=== PATIENT | female | born 1945 | race Hispanic/Latino ===

== ENCOUNTER 2018-05-19 10:12 | Inpatient (IN) | payer MEDICARE, OTHER ==
[2018-05-19 11:15] LABS: HEMOGLOBIN 14.6 g/dL (11.0-16.0); LYMPH # 0.8 K/uL (1.0-4.3); NRBC % 0.1 % (0.0-2.0)
[2018-05-19 11:21] LABS: BASO % 0.6 % (0.0-2.0); EOS % 0.4 % (0.0-4.0); LYMPH % 17.4 % (20.0-40.0); MEAN CELL VOLUME 92.8 fL (81.0-99.0); MEAN CORPUSCULAR HEMOGLOBIN 32.4 pg (27.0-31.0); MEAN CORPUSCULAR HGB CONC 34.9 g/dL (33.0-37.0); MEAN PLATELET VOLUME 8.7 fL (7.2-11.7); MONO # 0.4 K/uL (0.0-0.8); MONO % 8.2 % (0.0-10.0); NEUT # 3.4 K/uL (1.8-7.0); NEUT % 73.4 % (50.0-75.0); RBC 4.5 Mil/uL (3.80-5.20); RED CELL DISTRIBUTION WIDTH 13.6 % (11.5-14.5); WHITE BLOOD COUNT 4.6 K/uL (4.8-10.8)
[2018-05-19 11:24] LABS: SQUAMOUS EPITHIAL 7 /hpf (0-5); URINE BACTERIA OCC (<OCC); URINE BILIRUBIN NEGATIVE (NEGATIVE); URINE BLOOD 1+ (NEGATIVE); URINE CLARITY Hazy (Clear); URINE COLOR Yellow (YELLOW); URINE GLUCOSE (UA) NORMAL (Normal); URINE LEUKOCYTE ESTERASE 3+ Leu/uL (Negative); URINE PROTEIN 1+ mg/dL (NEGATIVE); URINE UROBILINOGEN NORMAL mg/dL (0.2-1.0)
[2018-05-19 11:29] LABS: ALB/GLOB RATIO 1.6 (1.0-2.1); ALBUMIN 4.1 g/dL (3.5-5.0); ALT/SGPT 31 U/L (9-52); AST/SGOT 17 U/L (14-36); BLOOD UREA NITROGEN 11 mg/dL (7-17); CALCIUM 9.1 mg/dl (8.6-10.4); GFR NON-AFRICAN AMERICAN > 60
--- NOTE | 2018-05-19 11:41 | C.PDOC ---
History Of Present Illness 72yo female, presents to ED with complaints of an itchy vaginal rash, which became painful 2.5 days ago. Denies fever, nausea/vomiting, fever, chills, back pain, or any other associated symptoms. No other complaints at this time. Chief Complaint (Nursing): Abnormal Skin Integrity History Per: Patient History/Exam Limitations: no limitations Past Medical History Reviewed: Historical Data, Nursing Documentation, Vital Signs Vital Signs: Last Vital Signs Temp 102.7 F H 05/19/18 14:56 Pulse 97 H 05/19/18 14:45 Resp 18 05/19/18 14:45 BP 149/79 05/19/18 14:45 Pulse Ox 95 05/19/18 14:45 - Medical History PMH: Arthritis, HTN, Hypercholesterolemia Surgical History: Back Surgery Family History: States: No Known Family Hx - Social History Hx Alcohol Use: No Hx Substance Use: No - Immunization History Hx Tetanus Toxoid Vaccination: No Hx Influenza Vaccination: No Hx Pneumococcal Vaccination: No Review Of Systems Constitutional: Negative for: Fever, Chills Gastrointestinal: Negative for: Nausea, Vomiting Neurological: Negative for: Weakness, Numbness Physical Exam - Physical Exam Appears: Non-toxic, No Acute Distress Skin: Warm, Dry, Other (suprapubic area including vulva and buttocks with erythema, warmth and raised skin, +scaling and yellow plaques. ) Head: Atraumatic, Normacephalic Eye(s): bilateral: Normal Inspection Nose: Normal Oral Mucosa: Moist Lips: Normal Appearing Neck: Normal ROM Chest: Symmetrical Cardiovascular: Rhythm Regular, No Murmur Respiratory: Normal Breath Sounds, No Accessory Muscle Use Gastrointestinal/Abdominal: Soft, No Tenderness Extremity: Normal ROM, No Deformity Neurological/Psych: Oriented x3, Normal Speech ED Course And Treatment - Laboratory Results Result Diagrams: 05/19/18 11:08 05/19/18 11:08 O2 Sat by Pulse Oximetry: 98 (RA) Pulse Ox Interpretation: Normal Progress Note: Lotrimin cream, Vanco IV and Zosyn IV started. Case was d/w who accepted patient to [facility] for an admission. Disposition - Disposition Disposition: HOSPITALIZED Disposition Time: 12:36 Condition: FAIR - Clinical Impression Clinical Impression: Cellulitis - Scribe Statement The provider has reviewed the documentation as recorded by the Sc[facility] All medical record entries made by the Scribe were at my direction and personally dictated by me. I have reviewed the chart and agree that the record accurately reflects my personal performance of the history, physical exam, medical decision making, and the department course for this patient. I have also personally directed, reviewed, and agree with the discharge instructions and disposition. Decision To Admit - Pt Status Changed To: Hospital Disposition Of: Inpatient - Admit Certification Admit to Inpatient:: After my assessment, the patient will require hospitalization for at least two midnights. This is because of the severity of symptoms shown, intensity of services needed, and/or the medical risk in this patient being treated as an outpatient. - InPatient: Physician Admission Certification: I certify that this patient requires 2 or more midnights of care for the following reason:: patient will need more than 2 days of IV antibiotics - . Bed Request Type: Regular Admitting Physician: Aaron Chapman Patient Diagnosis: Cellulitis
[2018-05-19] MEDS ORDERED: Clotrimazole 1% Cream 15 GM TUBE TOP STA (12:26)
[2018-05-19] MEDS ORDERED: Vancomycin 1 GM 1 GM/250 ML BAG IV SCH (12:30)
[2018-05-19] MEDS ORDERED: Piperacillin/Tazobact 3.375 gm 100 ML IV STA (12:35)
[2018-05-19] MEDS ORDERED: Piperacillin/Tazobact 3.375 gm 100 ML IVPB ONE (12:50)
[2018-05-19] MEDS ORDERED: Dextrose 50% SYRINGE Inj (50 ml) IVP PRN (14:39)
[2018-05-19] MEDS ORDERED: Dextrose 50% SYRINGE Inj (50 ml) IV PRN (14:39)
[2018-05-19] MEDS ORDERED: Glucagon Recombinant 1 mg Inj IM PRN (14:39)
[2018-05-19] MEDS ORDERED: Enoxaparin 40 mg Syringe SC SCH (14:45)
[2018-05-19] MEDS ORDERED: Acetaminophen 650mg/20.3ml solution UD PO STA (14:53)
[2018-05-19] MEDS ORDERED: Potassium Chloride 20 mEq ER Tab PO ONE (14:56)
[2018-05-19] MEDS: Piperacillin/Tazobact 3.375 GM in Sodium Chloride 100 ML IVPB SCH ×2 (15:06→22:51)
[2018-05-19] MEDS ORDERED: Enoxaparin 40 mg Syringe ONE (15:06)
[2018-05-19] MEDS ORDERED: Sodium Chloride 0.9% 1,000 ML IV SCH (15:15)
[2018-05-19] MEDS ORDERED: Iohexol 240 (50 ml) ONE (15:17)
[2018-05-19] MEDS ORDERED: Iohexol 240 (50 ml) PO ONE (15:18)
--- NOTE | 2018-05-19 15:18 | CP.PCM.HP ---
<Sebas Chun - Last Filed: 05/19/18 17:05> History of Present Illness - History of Present Illness History of Present Illness: CC: painful rash in my groin HPI: 72 yo F with a PMHx of DM type 2, Hypertension, Lipid Disorders, Rheumatoid Arthritis presents to the ED with a rash in her groin she noticed since . Pt says it been getting worse and describes it as itchy, burning and worse with urination. Pt also reports blood in urine that is bright red. She has not tried any creams or pills at home to alleviate the symptoms. The pain is 10/10 and localized to the groin, vagina and gluteal folds. ROS: Pos+ sweating, weakness, dysuria, increased urine frequency, nocturia, hematuria, back pain, rash Neg- f/c, n/v headache, dizzy, vision changes, sorethroat, cp, palps, sob, cough, blood in stool, abd pain, diarrhea, recent sickness, recent travel, sick contacts, weight loss, change in appetite PMD: Dr Jose Ledbetter PMHx: DM2, HTN, HLD, RA PSx: November [address] 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 absent: Chills, Weight Loss - EENT Eyes: absent: Blind Spots, Blurred Vision, Change in Vision, Diplopia Ears: absent: Dizziness Nose/Mouth/Throat: absent: Dysphagia, Neck Pain - Cardiovascular Cardiovascular: absent: Chest Pain, Leg Edema, Palpitations, Radiating Pain - Respiratory Respiratory: absent: Cough, Hemoptysis, Wheezing - Gastrointestinal Gastrointestinal: absent: Bloating, Diarrhea, Hematemesis, Hematochezia, Loose Stools, Nausea, Vomiting - Genitourinary Genitourinary: Dysuria, Hematuria, Pyuria, Nocturia - Reproductive: Female Reproductive:Female: Post Menopausal, Pelvic Pain, Vaginal Odor, Vaginal Pruritis - Musculoskeletal Musculoskeletal: Back Pain. absent: Numbness, Radiating Pain into Limb, Stiffness, Tingling - Integumentary Integumentary: Pruritus, Rash (groin) - Neurological Neurological: Weakness. absent: Dizziness, Memory Loss, Syncope - Psychiatric Psychiatric: absent: Behavioral Changes - Endocrine Endocrine: absent: Fatigue, Palpitations - Hematologic/Lymphatic Hematologic: absent: Easy Bleeding, Easy Bruising Past Patient History - Past Social History Smoking Status: Never Smoked - CARDIAC Hx Hypercholesterolemia: Yes Hx Hypertension: Yes - ENDOCRINE/METABOLIC Hx Diabetes Mellitus Type 2: Yes - MUSCULOSKELETAL/RHEUMATOLOGICAL Hx Arthritis: Yes - PSYCHIATRIC Hx Substance Use: No - SURGICAL HISTORY Hx Surgeries: Yes - ANESTHESIA Hx Anesthesia: Yes Hx Anesthesia Reactions: No Hx Malignant Hyperthermia: No Meds Allergies/Adverse Reactions: Allergies Allergy/AdvReac Type Severity Reaction Status Date / Time No Known Allergies Allergy Verified 05/19/18 10:28 Physical Exam - Constitutional Appears: Non-toxic - Head Exam Head Exam: ATRAUMATIC, NORMAL INSPECTION - Eye Exam Eye Exam: EOMI, Normal appearance - ENT Exam ENT Exam: Mucous Membranes Moist, Normal Exam - Neck Exam Neck exam: Positive for: Full Rom, Normal Inspection. Negative for: Tenderness , Thyromegaly - Respiratory Exam Respiratory Exam: Clear to Auscultation Bilateral, NORMAL BREATHING PATTERN. absent: Rhonchi, Wheezes, Respiratory Distress - Cardiovascular Exam Cardiovascular Exam: Tachycardia, RRR, +S1, +S2. absent: Irregular Rhythm, Systolic Murmur - GI/Abdominal Exam GI & Abdominal Exam: Normal Bowel Sounds, Soft. absent: Tenderness - Exam External exam: Erythema, Lesions Additional comments: large maculopapulorash ecompassing entire groin extending to mons pubis up to inguinal fold and posteriorly to gluteal folds. Bullae noted on posterior midgluteal area. crusting noted on macules throughout groin and mons pubis demarcated in purple border - Extremities Exam Extremities exam: Positive for: normal inspection - Back Exam Back exam: absent: CVA tenderness (L), CVA tenderness (R) - Neurological Exam Neurological exam: Alert, CN II-XII Intact, Normal Gait, Oriented x3 - Psychiatric Exam Psychiatric exam: Normal Affect, Normal Mood - Skin Skin Exam: Dry, Intact, Normal Color, Warm Results - Vital Signs Recent Vital Signs: Last Vital Signs Temp 102.7 F H 05/19/18 14:56 Pulse 97 H 05/19/18 14:45 Resp 18 05/19/18 14:45 BP 149/79 05/19/18 14:45 Pulse Ox 95 05/19/18 14:45 - Labs Result Diagrams: 05/19/18 11:08 05/19/18 11:08 Labs: Laboratory Results - last 24 hr 05/19/18 05/19/18 05/19/18 10:53 11:08 11:08 WBC 4.6 L RBC 4.50 Hgb 14.6 Hct 41.8 MCV 92.8 MCH 32.4 H MCHC 34.9 RDW 13.6 Plt Count 118 L MPV 8.7 Neut % (Auto) 73.4 Lymph % (Auto) 17.4 L Eagle % (Auto) 8.2 Eos % (Auto) 0.4 Baso % (Auto) 0.6 Neut # (Auto) 3.4 Lymph # (Auto) 0.8 L Eagle # (Auto) 0.4 Eos # (Auto) 0.0 Baso # (Auto) 0.0 Differential Comment Sodium 140 Potassium 3.5 L Chloride 102 Carbon Dioxide 29 Anion Gap 12 BUN 11 Creatinine 0.6 L Est GFR ( Amer) > 60 Est GFR (Non-Af Amer) > 60 Random Glucose 141 H Calcium 9.1 Total Bilirubin 0.9 AST 17 ALT 31 Alkaline Phosphatase 41 Total Protein 6.6 Albumin 4.1 Globulin 2.5 Albumin/Globulin Ratio 1.6 Urine Color Yellow Urine Clarity Hazy Urine pH 5.0 Ur Specific [place] 1.018 Urine Protein 1+ H Urine Glucose (UA) Normal Urine Ketones Negative Urine Blood 1+ H Urine Nitrate Negative Urine Bilirubin Negative Urine Urobilinogen Normal Ur Leukocyte Esterase 3+ H Urine WBC (Auto) 31 H Urine RBC (Auto) 5 H Ur Squamous Epith Cells 7 H Urine Bacteria Occ H Assessment & Plan - Assessment and Plan (Free Text) Assessment: 72yo F w/ a PMHx of HTN, HLD, DM2, RA presenting with a groin rash since 05/16 Plan: Cellulitis: -Zosyn 3.375g q8 IV -Vanco 1g q12 IV (trough tues 4am) -Diflucan 200mg IVPB -Lotrimin 1% top BID -CT ab pelvw/ and w/o contrast: f/u -ID consulted Dr Linn: f/u recs -Gen Surg consulted Dr Collins: f/u recs -f/u VBG shock panel -f/u lactate in 3 hrs DM type 2: -f/u a1c in AM -f/u Lipid panel in AM -Hold Metformin -Novolog ISS sc (low) -hypoglycemic protocol Hypokalemia: -K 3.3 on admission -kdur 20 given once -f/u am CMP Dysuria: -UA: prot 1+, blood 1+, Leuk Est 3+, WBC 31 H, Bacteria + -f/u UC -IVF 50ml/hr NS Abnormal EKG: -repeat in AM f/u Leukopenia -HIV 1/2 Abs f/u PPX: -SCDs -ASA 81mg <Yazmin Mccormack V - Last Filed: 05/19/18 19:34> Results - Vital Signs Recent Vital Signs: Last Vital Signs Temp 98.5 F 05/19/18 18:47 Pulse 76 05/19/18 18:47 Resp 16 05/19/18 18:47 BP 151/79 H 05/19/18 18:47 Pulse Ox 98 05/19/18 18:47 - Labs Result Diagrams: 05/19/18 11:08 05/19/18 11:08 Labs: Laboratory Results - last 24 hr 05/19/18 05/19/18 05/19/18 10:53 11:08 11:08 WBC 4.6 L RBC 4.50 Hgb 14.6 Hct 41.8 MCV 92.8 MCH 32.4 H MCHC 34.9 RDW 13.6 Plt Count 118 L MPV 8.7 Neut % (Auto) 73.4 Lymph % (Auto) 17.4 L Eagle % (Auto) 8.2 Eos % (Auto) 0.4 Baso % (Auto) 0.6 Neut # (Auto) 3.4 Lymph # (Auto) 0.8 L Eagle # (Auto) 0.4 Eos # (Auto) 0.0 Baso # (Auto) 0.0 Differential Comment pO2 VBG pH VBG pCO2 VBG HCO3 VBG Total CO2 VBG O2 Sat (Calc) VBG Base Excess VBG Potassium Glucose Lactate Sodium 140 Potassium 3.5 L Chloride 102 Carbon Dioxide 29 Anion Gap 12 BUN 11 Creatinine 0.6 L Est GFR ( Amer) > 60 Est GFR (Non-Af Amer) > 60 POC Glucose (mg/dL) Random Glucose 141 H Lactic Acid Calcium 9.1 Total Bilirubin 0.9 AST 17 ALT 31 Alkaline Phosphatase 41 Total Protein 6.6 Albumin 4.1 Globulin 2.5 Albumin/Globulin Ratio 1.6 Triglycerides Cholesterol LDL Cholesterol Direct HDL Cholesterol Venous Blood Potassium Urine Color Yellow Urine Clarity Hazy Urine pH 5.0 Ur Specific [place] 1.018 Urine Protein 1+ H Urine Glucose (UA) Normal Urine Ketones Negative Urine Blood 1+ H Urine Nitrate Negative Urine Bilirubin Negative Urine Urobilinogen Normal Ur Leukocyte Esterase 3+ H Urine WBC (Auto) 31 H Urine RBC (Auto) 5 H Ur Squamous Epith Cells 7 H Urine Bacteria Occ H 05/19/18 05/19/18 05/19/18 11:08 15:16 15:30 WBC RBC Hgb Hct MCV MCH MCHC RDW Plt Count MPV Neut % (Auto) Lymph % (Auto) Eagle % (Auto) Eos % (Auto) Baso % (Auto) Neut # (Auto) Lymph # (Auto) Eagle # (Auto) Eos # (Auto) Baso # (Auto) Differential Comment pO2 VBG pH VBG pCO2 VBG HCO3 VBG Total CO2 VBG O2 Sat (Calc) VBG Base Excess VBG Potassium Glucose Lactate Sodium Potassium Chloride Carbon Dioxide Anion Gap BUN Creatinine Est GFR ( Amer) Est GFR (Non-Af Amer) POC Glucose (mg/dL) 134 H Random Glucose Lactic Acid 1.8 Calcium Total Bilirubin AST ALT Alkaline Phosphatase Total Protein Albumin Globulin Albumin/Globulin Ratio Triglycerides 178 H Cholesterol 128 LDL Cholesterol Direct 66 HDL Cholesterol 29 L Venous Blood Potassium Urine Color Urine Clarity Urine pH Ur Specific [place] Urine Protein Urine Glucose (UA) Urine Ketones Urine Blood Urine Nitrate Urine Bilirubin Urine Urobilinogen Ur Leukocyte Esterase Urine WBC (Auto) Urine RBC (Auto) Ur Squamous Epith Cells Urine Bacteria 05/19/18 15:37 WBC RBC Hgb Hct MCV MCH MCHC RDW Plt Count MPV Neut % (Auto) Lymph % (Auto) Eagle % (Auto) Eos % (Auto) Baso % (Auto) Neut # (Auto) Lymph # (Auto) Eagle # (Auto) Eos # (Auto) Baso # (Auto) Differential Comment pO2 46 VBG pH 7.47 H VBG pCO2 37 L VBG HCO3 27.1 VBG Total CO2 28.0 VBG O2 Sat (Calc) 88.8 H VBG Base Excess 3.2 H VBG Potassium 3.1 L Glucose 142 H Lactate 1.9 Sodium 139.0 Potassium Chloride 105.0 Carbon Dioxide Anion Gap BUN Creatinine Est GFR ( Amer) Est GFR (Non-Af Amer) POC Glucose (mg/dL) Random Glucose Lactic Acid Calcium Total Bilirubin AST ALT Alkaline Phosphatase Total Protein Albumin Globulin Albumin/Globulin Ratio Triglycerides Cholesterol LDL Cholesterol Direct HDL Cholesterol Venous Blood Potassium 3.1 L Urine Color Urine Clarity Urine pH Ur Specific [place] Urine Protein Urine Glucose (UA) Urine Ketones Urine Blood Urine Nitrate Urine Bilirubin Urine Urobilinogen Ur Leukocyte Esterase Urine WBC (Auto) Urine RBC (Auto) Ur Squamous Epith Cells Urine Bacteria Attending/Attestation - Attestation I have personally seen and examined this patient.: Yes I have fully participated in the care of the patient.: Yes I have reviewed all pertinent clinical information: Yes Notes (Text): Patient seen examined and case discussed with day-time resident. Patient reports she had reported vaginal pruritus associated dysuria, hematuria, which she reports progressively got worsen. Patient did not attempt any antibiotics, nor antifungal therapy. Patient has been on steroids, lefunoamide, and Xeljanx for history of rheumatoid arthritis; and she reports she is on metformin for known history of diabetes. Patient's noted for sweats and fever which started today. Patient denies prior hx of uti/recent antibiotic/ nor history of yeast infections. Patient seen and examined with and witnessed by medical assistant at bedside. Patient is awake, alert, oriented X3, no acute distress, warm to touch, sweaty on exam R/R/R S1, S2 CT elvis /w/r/r Abdomen: soft NT/ND + BS, no rebound no guarding noted, no peritoneal signs Extremitie: no edema, no cyanosis, no clubbing b/l LE Back: no CVA tenderness b/l; healed surgical scar over L4-L5 on exam Patient noted over the genital urinary area: * in the intrigenous folds she has erythema, noted malodoros, no noted discharge over the intrious and inner thigh and over the gluteal cleft she has noted pustular plaque over the left buttock and erythema as well. the cleft itself has mild spacing but no drainage noted. Assessment/Plan 1) SIRS Cellulitis Fungal Rash Assessment/Plan * Criteria: fever, tachycardia, leukopenia Source: cellulitis; fungal rash * Lactic acid: 1.8 * Code sepsis not called given low lactate level * Pending Blood and urine cultures * Risk Factors: diabetes; immunocomprised secondary to steroids for RA * Start Zosyn 3.375g IVPB q8 (active since 05/19/18) * Start Vancomycin 1g IVPB q12H (active since 05/19/18) * Start Diflucan 200mg IVPB Q24H (active since 05/19/18) * Monitor LFTs * CT ab pelvis PO and IV contrast to evaluate cellulitis and to rule out abscess * Infectious Disease (Dr. Linn) on case-->help appreciated * general surgery (Dr. Collins) on case--> help appreciated * Florastor 250mg PO BID * NS 50cc/hr 2) DM type 2 Assessment/plan * f/u a1c in AM * f/u Lipid panel in AM * Hold Metformin * Novolog ISS sc (low) * Hypoglycemic protocol 3) Hypokalemia Assessment/plan * K 3.3 on admission * kdur 20 given once * f/u am CMP 4) Dysuria Assessment/plan * UA: prot 1+, blood 1+, Leuk Est 3+, WBC 31 H, Bacteria + * f/u UC * IVF 50ml/hr NS * Patient is on empiric antibiotic therapy until culture narrows choices 5) Abnormal EKG: Assessment/Plan * Flipped P waves in Lead V1 * Will repeat EKG in AM 6) History of Lipid Disorder Assessment/Plan * Lipid Disorder in AM * Atorvastatin 10mg POqHS-->will be switched to equivalent on hospital formulary 7) History of Hypertension Assessment/Plan * Check monitor vital signs * gentle IV hydration 8) Leukopenia Assessment/Plan * HIV 1/2 Abs f/u * note patient is on steroids for RA and has diabetes 10) Thrombocytopenia Assessment/Plan * mild * Hold chemical anticoagulation given thrombocytopenia * no noted ecchymoses nor petechiae on my exam 11)PPX: * SCDs * ASA 81mg PO daily * Chemical anticoagulation hold given mild thrombocytopenia * Full code * On gentle Iv hydration
[2018-05-19] MEDS: Fluconazole IV 200mg/100 ml NS 100 ML IVPB SCH ×2 (15:22→16:44)
[2018-05-19] MEDS ORDERED: Sodium Chloride 0.9% 1,000 ML ONE (15:26)
[2018-05-19 15:40] LABS: VENOUS BLOOD GAS BASE EXCESS 3.2 mmol/L (0.0-2.0); VENOUS BLOOD GAS PCO2 37 mmHg (40-60); VENOUS BLOOD GAS PO2 46 mm/Hg (30-55); VENOUS BLOOD PH 7.47 (7.32-7.43)
[2018-05-19] MEDS: (Novolog) Insulin Aspart, Recombinant 100 u/ml 10 ml vial SC SCH ×2 (15:40→21:55)
[2018-05-19 15:48] LABS: HDL CHOLESTEROL 29 mg/dL (30-70)
[2018-05-19] MEDS ORDERED: Iohexol 300 100 ML IJ ONE (15:56)
[2018-05-19 16:01] LABS: LDL CHOLESTEROL 66 mg/dL (0-129)
--- NOTE | 2018-05-19 16:24 | RAD ---
Date of service: 05/19/2018 HISTORY: pre admission COMPARISON: No prior. FINDINGS: LUNGS: No active pulmonary disease. PLEURA: No significant pleural effusion identified, no pneumothorax apparent. CARDIOVASCULAR: Normal. OSSEOUS STRUCTURES: No significant abnormalities. VISUALIZED UPPER ABDOMEN: Normal. OTHER FINDINGS: None. IMPRESSION: No acute cardiopulmonary disease appreciated.
--- NOTE | 2018-05-19 16:53 | CT ---
Date of service: 05/19/2018 PROCEDURE: CT Abdomen and Pelvis with contrast HISTORY: rash over suprapubic and gluteal cleft, abscess? COMPARISON: None. TECHNIQUE: Following oral and intravenous contrast administration, a CT examination of the abdomen and pelvis performed from the domes of the diaphragms to the symphysis pubis with reformatted datasets provided not only axial but also sagittal and coronal series. Contrast dose: Omnipaque 300, 100 cc Radiation dose: Total exam DLP = 1083.08 mGy-cm. This CT exam was performed using one or more of the following dose reduction techniques: Automated exposure control, adjustment of the mA and/or kV according to patient size, and/or use of iterative reconstruction technique. FINDINGS: LOWER THORAX: Tiny hiatal hernia identified with the pulmonary bases otherwise unremarkable. LIVER: Diminished attenuation seen diffusely, compatible with hepatic steatosis. There a few scattered lucencies seen in both lobes too small to characterize. 1 cm cyst is seen at the medial left lobe liver. No intrahepatic biliary dilatation appreciated or gross mass. GALLBLADDER AND BILE DUCTS: Unremarkable. PANCREAS: Unremarkable. No gross lesion or ductal dilatation. SPLEEN: Unremarkable. ADRENALS: Unremarkable. No mass. KIDNEYS AND URETERS: Unremarkable. No hydronephrosis. No solid mass. VASCULATURE: Unremarkable. No aortic aneurysm. BOWEL: Unremarkable. No obstruction. No gross mural thickening. APPENDIX: Normal appendix. PERITONEUM: Unremarkable. No free fluid. No free air. LYMPH NODES: Unremarkable. No enlarged lymph nodes. BLADDER: Unremarkable. REPRODUCTIVE: Unremarkable. BONES: No acute fracture. OTHER FINDINGS: Dermal thickening with subcutaneous reactive changes seen related to the gluteal cleft as well as suprapubic soft tissue suspicious for possible cellulitis. No abscess or emphysematous soft tissue change related. IMPRESSION: 1. Limited cellulitis affects suprapubic dermis and local subcutaneous fat as well as the dermis related to the gluteal fold with mid and superior segment and local subcutaneous fat as well. No abscess or emphysema soft tissue change related. Further clinical correlation recommended. 2. Hepatic steatosis. A few small lucencies probably but not definitively reflecting cysts are identified scattered both left and right lobes with a small 1 cm cyst identified at the medial left lobe. 3. Exam otherwise unremarkable.
[2018-05-19] MEDS ORDERED: ROSUVASTATIN 5MG PO SCH ×2 (17:45→18:00)
[2018-05-19] MEDS: Clotrimazole 1% Cream(30 gm) TOP SCH (18:15)
[2018-05-19] MEDS: Saccharomyces Boulardi 250 mg Cap PO SCH (18:15)
--- NOTE | 2018-05-19 18:20 | CP.PCM.CON ---
History of Present Illness - History of Present Illness History of Present Illness: Surgery: Dr. Collins CC: R groin cellulitis HPI: 72F w. pmh of HTN, hypercholesterolemia, and DM, presents to ED with rash on her R groin x 2 days. She states that she has never had this before. She states that the rash is accompanied by intermittent pain. The pain is worse when she is sitting/pressure is applied to the area. She denies any drainage from the area, but she does note some occasional bleeding. She has placed an unspecified cream on the rash, however it did not provide any relief. She denies F/C, but did have fever in ED. She denies vaginal discharge, no hematuria or dysuria. In ED CT was done which showed cellulitis, but no drainable collection or signs of subq air. PMH: see above PSH: spine surgery Meds: MAR reviewed NKDA Social: No ETOH/tobacco/drugs Fhx: non-contributory Review of Systems - Review of Systems All systems: reviewed and no additional remarkable complaints except (HPI) Past Patient History - Past Social History Smoking Status: Never Smoked - CARDIAC Hx Hypercholesterolemia: Yes Hx Hypertension: Yes - ENDOCRINE/METABOLIC Hx Diabetes Mellitus Type 2: Yes - MUSCULOSKELETAL/RHEUMATOLOGICAL Hx Arthritis: Yes - PSYCHIATRIC Hx Substance Use: No - SURGICAL HISTORY Hx Surgeries: Yes - ANESTHESIA Hx Anesthesia: Yes Hx Anesthesia Reactions: No Hx Malignant Hyperthermia: No Meds Allergies/Adverse Reactions: Allergies Allergy/AdvReac Type Severity Reaction Status Date / Time No Known Allergies Allergy Verified 05/19/18 10:28 - Medications Medications: Current Medications Acetaminophen (Tylenol 325mg Tab) 650 mg PO Q6 PRN PRN Reason: Pain, moderate (4-7) Carvedilol (Coreg) 25 mg PO DAILY [facility] Clotrimazole (Lotrimin 1%) 1 gm TOP BID [facility] Dextrose (Dextrose 50% Inj) 50 ml IVP ONCE PRN PRN Reason: Hypoglycemia Dextrose (Dextrose 50% Inj) 0 ml IV STAT PRN; Protocol PRN Reason: Hypoglycemia Protocol Dextrose (Glutose 15) 0 gm PO ONCE PRN; Protocol PRN Reason: Hypoglycemia Protocol Enoxaparin Sodium (Lovenox) 40 mg SC DAILY [facility] Last Admin: 05/19/18 15:05 Dose: 40 mg Glucagon (Glucagen Diagnostic Kit) 0 mg IM STAT PRN; Protocol PRN Reason: Hypoglycemia Protocol Vancomycin HCl (Vancomycin 1gm In Normal Saline Addvantage) 1 gm in 250 mls @ 166.667 mls/hr IV STAT [facility] PRN Reason: Protocol Last Admin: 05/19/18 13:27 Dose: 166.667 mls/hr Dextrose (Dextrose 5% In Water 1000 Ml) 1,000 mls @ 0 mls/hr IV .Q0M PRN; Protocol; Per Protocol PRN Reason: Hypoglycemia Protocol Fluconazole (Diflucan Iv 200 Mg/100 Ml Ns) 100 mls @ 100 mls/hr IVPB DAILY [facility] PRN Reason: Protocol Last Admin: 05/19/18 16:44 Dose: 100 mls/hr Piperacillin Sod/Tazobactam (Sod 3.375 gm/ Sodium Chloride) 100 mls @ 200 mls/ hr IVPB Q8H [facility] PRN Reason: Protocol Last Admin: 05/19/18 15:06 Dose: Not Given Sodium Chloride (Sodium Chloride 0.9%) 1,000 mls @ 50 mls/hr IV .Q20H [facility] Stop: 05/20/18 00:01 Last Admin: 05/19/18 15:22 Dose: 50 mls/hr Vancomycin HCl 1,000 mg/ (Sodium Chloride) 250 mls @ 166.6 mls/hr IVPB Q12H [facility] PRN Reason: Protocol Insulin Aspart (Novolog) 0 unit SC ACHS [facility] PRN Reason: Protocol Last Admin: 05/19/18 15:40 Dose: Not Given Rosuvastatin Calcium (Crestor) 5 mg PO DIN [facility] Saccharomyces Boulardii (Florastor) 250 mg PO BID [facility] Physical Exam - Constitutional Appears: Non-toxic, No Acute Distress - Head Exam Head Exam: ATRAUMATIC, NORMOCEPHALIC - Eye Exam Eye Exam: EOMI - ENT Exam ENT Exam: Mucous Membranes Moist - Neck Exam Neck exam: Positive for: Full Rom - Respiratory Exam Respiratory Exam: NORMAL BREATHING PATTERN. absent: Accessory Muscle Use, Respiratory Distress - Cardiovascular Exam Cardiovascular Exam: REGULAR RHYTHM - GI/Abdominal Exam GI & Abdominal Exam: Soft. absent: Distended, Firm, Guarding, Rebound, Rigid, Tenderness - Exam Additional comments: Cellulitis R groin involving labia majora and inner gluteus, area is erythematous, tender to palpation, indurated, no fluctuance - Extremities Exam Extremities exam: Negative for: calf tenderness, pedal edema - Neurological Exam Neurological exam: Alert, Oriented x3 - Psychiatric Exam Psychiatric exam: Normal Affect, Normal Mood Results - Vital Signs Recent Vital Signs: Last Vital Signs Temp 98.5 F 05/19/18 16:43 Pulse 84 05/19/18 16:43 Resp 20 05/19/18 16:43 BP 109/75 05/19/18 16:43 Pulse Ox 96 05/19/18 16:43 - Labs Result Diagrams: 05/19/18 11:08 05/19/18 11:08 Labs: Laboratory Results - last 24 hr 05/19/18 05/19/18 05/19/18 10:53 11:08 11:08 WBC 4.6 L RBC 4.50 Hgb 14.6 Hct 41.8 MCV 92.8 MCH 32.4 H MCHC 34.9 RDW 13.6 Plt Count 118 L MPV 8.7 Neut % (Auto) 73.4 Lymph % (Auto) 17.4 L Wilcox % (Auto) 8.2 Eos % (Auto) 0.4 Baso % (Auto) 0.6 Neut # (Auto) 3.4 Lymph # (Auto) 0.8 L Wilcox # (Auto) 0.4 Eos # (Auto) 0.0 Baso # (Auto) 0.0 Differential Comment pO2 VBG pH VBG pCO2 VBG HCO3 VBG Total CO2 VBG O2 Sat (Calc) VBG Base Excess VBG Potassium Glucose Lactate Sodium 140 Potassium 3.5 L Chloride 102 Carbon Dioxide 29 Anion Gap 12 BUN 11 Creatinine 0.6 L Est GFR ( Amer) > 60 Est GFR (Non-Af Amer) > 60 POC Glucose (mg/dL) Random Glucose 141 H Lactic Acid Calcium 9.1 Total Bilirubin 0.9 AST 17 ALT 31 Alkaline Phosphatase 41 Total Protein 6.6 Albumin 4.1 Globulin 2.5 Albumin/Globulin Ratio 1.6 Triglycerides Cholesterol LDL Cholesterol Direct HDL Cholesterol Venous Blood Potassium Urine Color Yellow Urine Clarity Hazy Urine pH 5.0 Ur Specific [place] 1.018 Urine Protein 1+ H Urine Glucose (UA) Normal Urine Ketones Negative Urine Blood 1+ H Urine Nitrate Negative Urine Bilirubin Negative Urine Urobilinogen Normal Ur Leukocyte Esterase 3+ H Urine WBC (Auto) 31 H Urine RBC (Auto) 5 H Ur Squamous Epith Cells 7 H Urine Bacteria Occ H 05/19/18 05/19/18 05/19/18 11:08 15:16 15:30 WBC RBC Hgb Hct MCV MCH MCHC RDW Plt Count MPV Neut % (Auto) Lymph % (Auto) Wilcox % (Auto) Eos % (Auto) Baso % (Auto) Neut # (Auto) Lymph # (Auto) Wilcox # (Auto) Eos # (Auto) Baso # (Auto) Differential Comment pO2 VBG pH VBG pCO2 VBG HCO3 VBG Total CO2 VBG O2 Sat (Calc) VBG Base Excess VBG Potassium Glucose Lactate Sodium Potassium Chloride Carbon Dioxide Anion Gap BUN Creatinine Est GFR ( Amer) Est GFR (Non-Af Amer) POC Glucose (mg/dL) 134 H Random Glucose Lactic Acid 1.8 Calcium Total Bilirubin AST ALT Alkaline Phosphatase Total Protein Albumin Globulin Albumin/Globulin Ratio Triglycerides 178 H Cholesterol 128 LDL Cholesterol Direct 66 HDL Cholesterol 29 L Venous Blood Potassium Urine Color Urine Clarity Urine pH Ur Specific [place] Urine Protein Urine Glucose (UA) Urine Ketones Urine Blood Urine Nitrate Urine Bilirubin Urine Urobilinogen Ur Leukocyte Esterase Urine WBC (Auto) Urine RBC (Auto) Ur Squamous Epith Cells Urine Bacteria 05/19/18 15:37 WBC RBC Hgb Hct MCV MCH MCHC RDW Plt Count MPV Neut % (Auto) Lymph % (Auto) Wilcox % (Auto) Eos % (Auto) Baso % (Auto) Neut # (Auto) Lymph # (Auto) Wilcox # (Auto) Eos # (Auto) Baso # (Auto) Differential Comment pO2 46 VBG pH 7.47 H VBG pCO2 37 L VBG HCO3 27.1 VBG Total CO2 28.0 VBG O2 Sat (Calc) 88.8 H VBG Base Excess 3.2 H VBG Potassium 3.1 L Glucose 142 H Lactate 1.9 Sodium 139.0 Potassium Chloride 105.0 Carbon Dioxide Anion Gap BUN Creatinine Est GFR ( Amer) Est GFR (Non-Af Amer) POC Glucose (mg/dL) Random Glucose Lactic Acid Calcium Total Bilirubin AST ALT Alkaline Phosphatase Total Protein Albumin Globulin Albumin/Globulin Ratio Triglycerides Cholesterol LDL Cholesterol Direct HDL Cholesterol Venous Blood Potassium 3.1 L Urine Color Urine Clarity Urine pH Ur Specific [place] Urine Protein Urine Glucose (UA) Urine Ketones Urine Blood Urine Nitrate Urine Bilirubin Urine Urobilinogen Ur Leukocyte Esterase Urine WBC (Auto) Urine RBC (Auto) Ur Squamous Epith Cells Urine Bacteria - Imaging and Cardiology CT scan - pelvis Status: Image reviewed by me, Report reviewed by me Assessment & Plan - Assessment and Plan (Free Text) Assessment: 72F w. 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
[2018-05-20] MEDS: Vancomycin 1 gm/NS 200 ml 1 GM/200 ML BAG IVPB SCH ×2 (03:00→17:32)
[2018-05-20] MEDS: Piperacillin/Tazobact 3.375 GM in Sodium Chloride 100 ML IVPB SCH ×3 (06:35→22:23)
[2018-05-20 07:45] LABS: BASO % 0.7 % (0.0-2.0); EOS % 0.5 % (0.0-4.0); HEMOGLOBIN 12.9 g/dL (11.0-16.0); LYMPH # 0.8 K/uL (1.0-4.3); MEAN CELL VOLUME 93.8 fL (81.0-99.0); MEAN CORPUSCULAR HEMOGLOBIN 32.4 pg (27.0-31.0); MEAN CORPUSCULAR HGB CONC 34.5 g/dL (33.0-37.0); MONO # 0.3 K/uL (0.0-0.8); NEUT # 2.3 K/uL (1.8-7.0); NEUT % 65.8 % (50.0-75.0); NRBC % 0.1 % (0.0-2.0); RBC 3.97 Mil/uL (3.80-5.20); RED CELL DISTRIBUTION WIDTH 13.7 % (11.5-14.5); WHITE BLOOD COUNT 3.4 K/uL (4.8-10.8)
[2018-05-20] MEDS: (Novolog) Insulin Aspart, Recombinant 100 u/ml 10 ml vial SC SCH ×4 (07:48→21:45)
[2018-05-20 08:30] LABS: ALB/GLOB RATIO 1.3 (1.0-2.1); ALT/SGPT 23 U/L (9-52); AST/SGOT 14 U/L (14-36); BLOOD UREA NITROGEN 12 mg/dL (7-17); GFR NON-AFRICAN AMERICAN > 60
[2018-05-20] MEDS ORDERED: Potassium Chloride 20 mEq ER Tab PO ONE ×2 (08:55→11:15)
--- NOTE | 2018-05-20 09:57 | CP.PCM.PN ---
Subjective - Date & Time of Evaluation Date of Evaluation: 05/20/18 Time of Evaluation: 09:52 - Subjective Subjective: PGY-1 general surgery note for Dr Collins Patient is seen and examined at bedside. Patient reports no acute events overnight. Patient states she has not received any warm compresses last night. Patient denies vaginal bleeding or hematuria. Objective - Vital Signs/Intake and Output Vital Signs (last 24 hours): Temp Pulse Resp BP Pulse Ox 100 F H 94 H 20 177/88 H 96 05/20/18 01:30 05/20/18 00:00 05/20/18 00:00 05/20/18 01:00 05/20/18 00:00 Intake and Output: 05/20/18 05/20/18 06:59 18:59 Intake Total 300 Balance 300 - Medications Medications: Current Medications Acetaminophen (Tylenol 325mg Tab) 650 mg PO Q6 PRN PRN Reason: Fever >100.4 F Carvedilol (Coreg) 25 mg PO DAILY [facility] Clotrimazole (Lotrimin 1%) 1 gm TOP BID [facility] Last Admin: 05/19/18 18:15 Dose: 1 gm Dextrose (Dextrose 50% Inj) 50 ml IVP ONCE PRN PRN Reason: Hypoglycemia Dextrose (Dextrose 50% Inj) 0 ml IV STAT PRN; Protocol PRN Reason: Hypoglycemia Protocol Dextrose (Glutose 15) 0 gm PO ONCE PRN; Protocol PRN Reason: Hypoglycemia Protocol Glucagon (Glucagen Diagnostic Kit) 0 mg IM STAT PRN; Protocol PRN Reason: Hypoglycemia Protocol Vancomycin HCl (Vancomycin 1gm In Normal Saline Addvantage) 1 gm in 250 mls @ 166.667 mls/hr IV STAT [facility] PRN Reason: Protocol Last Admin: 05/19/18 13:27 Dose: 166.667 mls/hr Dextrose (Dextrose 5% In Water 1000 Ml) 1,000 mls @ 0 mls/hr IV .Q0M PRN; Protocol; Per Protocol PRN Reason: Hypoglycemia Protocol Fluconazole (Diflucan Iv 200 Mg/100 Ml Ns) 100 mls @ 100 mls/hr IVPB DAILY [facility] PRN Reason: Protocol Last Admin: 05/19/18 16:44 Dose: 100 mls/hr Piperacillin Sod/Tazobactam (Sod 3.375 gm/ Sodium Chloride) 100 mls @ 200 mls/ hr IVPB Q8H [facility] PRN Reason: Protocol Last Admin: 05/20/18 06:35 Dose: 200 mls/hr Vancomycin/Sodium Chloride (Vancomycin 1 Gm/Ns 200 Ml) 1 gm in 200 mls @ 166.6 mls/hr IVPB Q12H [facility] PRN Reason: Protocol Stop: 05/25/18 03:01 Last Admin: 05/20/18 03:00 Dose: 166.6 mls/hr Insulin Aspart (Novolog) 0 unit SC ACHS [facility] PRN Reason: Protocol Last Admin: 05/20/18 07:48 Dose: Not Given Lisinopril (Zestril) 5 mg PO DAILY [facility] Pneumococcal Polyvalent Vaccine (Pneumovax 23 Vaccine) 0.5 ml IM .ONCE ONE Stop: 05/22/18 10:01 Rosuvastatin Calcium (Crestor) 5 mg PO DIN [facility] Last Admin: 05/19/18 18:14 Dose: 5 mg Saccharomyces Boulardii (Florastor) 250 mg PO BID [facility] Last Admin: 05/19/18 18:15 Dose: 250 mg - Labs Labs: 05/20/18 07:15 05/20/18 07:15 - Constitutional Appears: Non-toxic, No Acute Distress - Head Exam Head Exam: ATRAUMATIC, NORMAL INSPECTION - Eye Exam Eye Exam: EOMI - Neck Exam Neck Exam: Full ROM - Respiratory Exam Respiratory Exam: NORMAL BREATHING PATTERN. absent: Accessory Muscle Use, Respiratory Distress - Cardiovascular Exam Cardiovascular Exam: REGULAR RHYTHM - GI/Abdominal Exam GI & Abdominal Exam: Soft. absent: Distended, Tenderness - Exam Additional comments: Cellulitis R groin involving labia majora, inner gluteus. Erythema found in pubic and suprapubic area, nontender to palpation, indurated, nonfluctation. 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
[2018-05-20] MEDS: Fluconazole IV 200mg/100 ml NS 100 ML IVPB SCH (10:54)
[2018-05-20] MEDS: Saccharomyces Boulardi 250 mg Cap PO SCH ×2 (10:55→17:33)
[2018-05-20] MEDS ORDERED: Magnesium Sulfate 1 gm in D5W 1 GM/100 ML BAG IVPB ONE (13:11)
--- NOTE | 2018-05-20 13:57 | CP.PCM.PN ---
<Rj Dalton - Last Filed: 05/20/18 15:35> Subjective - Date & Time of Evaluation Date of Evaluation: 05/20/18 Time of Evaluation: 13:57 - Subjective Subjective: Medicine Progress Note for Dr. Mccormack -- Rj Dalton PGY1 Cnp Note: Translation provided with SEVERO (Krystin) The patient was seen and examined at bedside this morning. Per patient, she had no acute complaints overnight and/or this morning. Patient states she continues to have burning with urination that is mild and goes away after a few minutes. Per patient, she denies any tenderness and/or pruritus to the groin and/or gluteal region. Patient says she was able to have a normal bowel movement and has been eating without issue. Patient denies chest pain, shortness of breath, abdominal pain, fever, chills, nausea and/or vomiting. Objective - Vital Signs/Intake and Output Vital Signs (last 24 hours): Temp Pulse Resp BP Pulse Ox 98.8 F 76 20 144/84 96 05/20/18 08:00 05/20/18 08:00 05/20/18 08:00 05/20/18 10:55 05/20/18 08:00 Intake and Output: 05/20/18 05/20/18 06:59 18:59 Intake Total 300 Balance 300 - Medications Medications: Current Medications Acetaminophen (Tylenol 325mg Tab) 650 mg PO Q6 PRN PRN Reason: Fever >100.4 F Carvedilol (Coreg) 25 mg PO DAILY [facility] Last Admin: 05/20/18 10:55 Dose: 25 mg Clotrimazole (Lotrimin 1%) 1 gm TOP BID [facility] Last Admin: 05/19/18 18:15 Dose: 1 gm Dextrose (Dextrose 50% Inj) 50 ml IVP ONCE PRN PRN Reason: Hypoglycemia Dextrose (Dextrose 50% Inj) 0 ml IV STAT PRN; Protocol PRN Reason: Hypoglycemia Protocol Dextrose (Glutose 15) 0 gm PO ONCE PRN; Protocol PRN Reason: Hypoglycemia Protocol Glucagon (Glucagen Diagnostic Kit) 0 mg IM STAT PRN; Protocol PRN Reason: Hypoglycemia Protocol Vancomycin HCl (Vancomycin 1gm In Normal Saline Addvantage) 1 gm in 250 mls @ 166.667 mls/hr IV STAT [facility] PRN Reason: Protocol Last Admin: 05/19/18 13:27 Dose: 166.667 mls/hr Dextrose (Dextrose 5% In Water 1000 Ml) 1,000 mls @ 0 mls/hr IV .Q0M PRN; Protocol; Per Protocol PRN Reason: Hypoglycemia Protocol Fluconazole (Diflucan Iv 200 Mg/100 Ml Ns) 100 mls @ 100 mls/hr IVPB DAILY [facility] PRN Reason: Protocol Last Admin: 05/20/18 10:54 Dose: 100 mls/hr Piperacillin Sod/Tazobactam (Sod 3.375 gm/ Sodium Chloride) 100 mls @ 200 mls/ hr IVPB Q8H [facility] PRN Reason: Protocol Last Admin: 05/20/18 06:35 Dose: 200 mls/hr Vancomycin/Sodium Chloride (Vancomycin 1 Gm/Ns 200 Ml) 1 gm in 200 mls @ 166.6 mls/hr IVPB Q12H [facility] PRN Reason: Protocol Stop: 05/25/18 03:01 Last Admin: 05/20/18 03:00 Dose: 166.6 mls/hr Insulin Aspart (Novolog) 0 unit SC ACHS [facility] PRN Reason: Protocol Last Admin: 05/20/18 12:24 Dose: Not Given Lisinopril (Zestril) 5 mg PO DAILY [facility] Last Admin: 05/20/18 10:57 Dose: 5 mg Pneumococcal Polyvalent Vaccine (Pneumovax 23 Vaccine) 0.5 ml IM .ONCE ONE Stop: 05/22/18 10:01 Rosuvastatin Calcium (Crestor) 5 mg PO DIN [facility] Last Admin: 05/19/18 18:14 Dose: 5 mg Saccharomyces Boulardii (Florastor) 250 mg PO BID [facility] Last Admin: 05/20/18 10:55 Dose: 250 mg - Labs Labs: 05/20/18 07:15 05/20/18 07:15 - Additional Findings Additional findings: - Constitutional Appears: Non-toxic, No Acute Distress - Head Exam Head Exam: ATRAUMATIC, NORMAL INSPECTION - Eye Exam Eye Exam: EOMI - Neck Exam Neck Exam: Full ROM. absent: tender cervical lymphadenopathy - Respiratory Exam Respiratory Exam: NORMAL BREATHING PATTERN. absent: Accessory Muscle Use, Respiratory Distress - Cardiovascular Exam Cardiovascular Exam: REGULAR RHYTHM, S1 and S2 present. absent: Diastolic murmur , Gallops, Rubs - GI/Abdominal Exam GI & Abdominal Exam: Soft. Normal Bowel Sounds. absent: Distended, Tenderness, Rebound, Guarding - Exam Additional comments: Labia majora with cellulitic changes with right labia majora more indurated than left. Prominent right inguinal lymph nodes. Inner gluteal cleft with bilateral erythema, bullae that are non-tender to palpation, Sacral cleft and left buttock: hyperpigmented scaley macular plaques that continue down towards the medial thigh. Erythema found in pubic and suprapubic area, non-tender to palpation, indurated , nonfluctation. - Extremities Exam Extremities Exam: Full ROM, Normal Inspection - Neurological Exam Neurological Exam: Alert, Awake, Oriented x3 - Psychiatric Exam Psychiatric exam: Normal Affect, Normal Mood Assessment and Plan - Assessment and Plan (Free Text) Assessment: This is a 72 year old Chinese Female with past medical history significant for Diabetes Mellitus type 2, Hypertension, Lipid Disorders, Rheumatoid Arthritis who was admitted to [facility] on 05/19/2018 for evaluation treatment of painful cellulitis in her groin and and with a rash in her genital urinary region since 05/16/18. Assessment & Plan Right Groin Cellulitis, fungal rash, rule out abscess - SIRS Criteria met on admission: fever ([id number]=[id number] at 00:00 05/20/2018, afebrile on repeat at 07:00), Tachycardia, leukopenia - Patient afebrile at time of evaluation - Lactic acid=1.8 on admission - Blood cultures prelim: no growth x 24 hours, pending gram stain - Wound culture: pending - Urine cultures: pending - Continue Zosyn 3.375g IVPB q8 (active since 05/19/18) - Continue Vancomycin 1g IVPB q12H (active since 05/19/18) - Continue Diflucan 200mg IVPB Q24H (active since 05/19/18) - Risk Factors: diabetes; immunocomprised secondary to steroids for RA - CT abd/pelvis PO and IV contrast impression per radiology report: Limited cellulitis affects suprapubic dermis and local subcutaneous fat as well as the dermis related to the gluteal fold with mild and superior segment and local subcutaneous fat as well. No abscess or emphysema soft tissue changes related. - Infectious Disease (Dr. Linn) consulted, recommendations appreciated - General surgery (Dr. Collins) consulted, recommendations appreciated: Warm compress application for 20 minutes TID - Gynecology consulted: Dr. Zepeda, recommendations appreciated - Continue Florastor 250mg PO BID - Tylenol 650mg PO Q6H for severe pain and/or T>100.4F - Continue NS 50cc/hr - Continue to monitor with serial exams Hypokalemia, - K=3.3 (3.5 on admission) - Magnesium=1.7 - Magnesium sulfate 1gm IVPB given - Potassium repleted with K-Dur 40mg PO once - Continue to monitor with CMP Dysuria, pending urine cultures - Blood cultures: no growth x 24 hours, pending gram stain - Urinalysis 05/19: protein 1+, blood 1+, Leuk Est 3+, WBC 31 H, Bacteria + - Urine culture: pending - IVF 50ml/hr NS - Patient is on empiric antibiotic therapy until culture narrows choices Abnormal EKG on admission, resolved - Initial EKG (05/19): Flipped P waves in Lead V1 - Repeat EKG today: Normal sinus rhythm DM type 2 - Hemoglobin A1C = 7.2 - Continue Novolog ISS sc (low) - Continue to hold Metformin - Continue Novolog ISS sc (low) - Hypoglycemic protocol History of Lipid Disorder - Lipid Panel Results: Gzrxfcvueuhka=088, HDL=29, LDL=66, Total Cholesterol= 128 - Continue equivalent of home-med (Atorvastatin 10mg POqHS) History of Hypertension, stable - LB=344/84 - Monitor vital signs - Gentle IV hydration History of Rheumatoid Arthritis - Hold home meds during admission (Methylprednisolone 4mg QD, Leflunamide 20mg QD, Xeljanz 11mg QD) Leukopenia likely due to patient being on home steroids - WBC=3.4, down from 4.6 on 05/19 - HIV 1/2 Abs pending results - Discontinue home steroids for RA - Continue to monitor Thrombocytopenia, Mild - Jrlzdbgxn=203 (down from 118 on 05/19) - Hold chemical anticoagulation given thrombocytopenia - No noted ecchymoses and/or petechiae on physical exam History of Osteoporosis - Hold home med during admission (Risendronate 150mg Monthly) PPx: - SCDs - ASA 81mg PO daily - Chemical anticoagulation hold given mild thrombocytopenia - Full code - On gentle IV hydration Patient seen and evaluated with and case discussed in detail with Attending Physician, Dr. Easton Dalton PGY1 <Yazmin Mccormack V - Last Filed: 05/21/18 00:22> Objective - Vital Signs/Intake and Output Vital Signs (last 24 hours): Temp Pulse Resp BP Pulse Ox 99.2 F 76 20 108/67 95 05/20/18 15:06 05/20/18 15:06 05/20/18 15:06 05/20/18 15:06 05/20/18 15:06 Intake and Output: 05/20/18 05/21/18 18:59 06:59 Intake Total 1100 250 Output Total 1 Balance 1099 250 - Medications Medications: Current Medications Acetaminophen (Tylenol 325mg Tab) 650 mg PO Q6 PRN PRN Reason: Fever >100.4 F Last Admin: 05/20/18 21:45 Dose: 650 mg Carvedilol (Coreg) 25 mg PO DAILY [facility] Last Admin: 05/20/18 10:55 Dose: 25 mg Clotrimazole (Lotrimin 1%) 1 gm TOP BID [facility] Last Admin: 05/19/18 18:15 Dose: 1 gm Dextrose (Dextrose 50% Inj) 50 ml IVP ONCE PRN PRN Reason: Hypoglycemia Dextrose (Dextrose 50% Inj) 0 ml IV STAT PRN; Protocol PRN Reason: Hypoglycemia Protocol Dextrose (Glutose 15) 0 gm PO ONCE PRN; Protocol PRN Reason: Hypoglycemia Protocol Glucagon (Glucagen Diagnostic Kit) 0 mg IM STAT PRN; Protocol PRN Reason: Hypoglycemia Protocol Vancomycin HCl (Vancomycin 1gm In Normal Saline Addvantage) 1 gm in 250 mls @ 166.667 mls/hr IV STAT [facility] PRN Reason: Protocol Last Admin: 05/19/18 13:27 Dose: 166.667 mls/hr Dextrose (Dextrose 5% In Water 1000 Ml) 1,000 mls @ 0 mls/hr IV .Q0M PRN; Protocol; Per Protocol PRN Reason: Hypoglycemia Protocol Fluconazole (Diflucan Iv 200 Mg/100 Ml Ns) 100 mls @ 100 mls/hr IVPB DAILY [facility] PRN Reason: Protocol Last Admin: 05/20/18 10:54 Dose: 100 mls/hr Piperacillin Sod/Tazobactam (Sod 3.375 gm/ Sodium Chloride) 100 mls @ 200 mls/ hr IVPB Q8H [facility] PRN Reason: Protocol Last Admin: 05/20/18 22:23 Dose: 200 mls/hr Vancomycin/Sodium Chloride (Vancomycin 1 Gm/Ns 200 Ml) 1 gm in 200 mls @ 166.6 mls/hr IVPB Q12H [facility] PRN Reason: Protocol Stop: 05/25/18 03:01 Last Admin: 05/20/18 17:32 Dose: 166.6 mls/hr Insulin Aspart (Novolog) 0 unit SC ACHS [facility] PRN Reason: Protocol Last Admin: 05/20/18 21:45 Dose: Not Given Lisinopril (Zestril) 5 mg PO DAILY [facility] Last Admin: 05/20/18 10:57 Dose: 5 mg Pneumococcal Polyvalent Vaccine (Pneumovax 23 Vaccine) 0.5 ml IM .ONCE ONE Stop: 05/22/18 10:01 Rosuvastatin Calcium (Crestor) 5 mg PO DIN [facility] Last Admin: 05/19/18 18:14 Dose: 5 mg Saccharomyces Boulardii (Florastor) 250 mg PO BID [facility] Last Admin: 05/20/18 17:33 Dose: 250 mg - Labs Labs: 05/20/18 07:15 05/20/18 07:15 Attending/Attestation - Attestation I have personally seen and examined this patient.: Yes I have fully participated in the care of the patient.: Yes I have reviewed all pertinent clinical information, including history, physical exam and plan: Yes Notes (Text): Patient seen examined and case discussed with day-time resident. Patient reports she had reported vaginal pruritus associated dysuria, hematuria, which she reports progressively got worsen. Patient did not attempt any antibiotics, nor antifungal therapy. Patient has been on steroids, lefunoamide, and Xeljanx for history of rheumatoid arthritis; and she reports she is on metformin for known history of diabetes. Patient's noted for sweats and fever which started yesterday. Patient admits she is feeling somewhat better. She reports pain over the groin is about 8/10 on pain scale and area she is able to sit on her back side she is able to tolerate. Patient denies vaginal discharge but notes she has been having urinary incontinence for the past one year, unclear if stress/urge or combination. Awaiting consult from obstetrics gynecology physician service. Patient seen and examined with and witnessed by dental assistant medical assistant at bedside. Patient is awake, alert, oriented X3, no acute distress, warm to touch, sweaty on exam R/R/R S1, S2 CT elvis /w/r/r Abdomen: soft NT/ND + BS, no rebound no guarding noted, no peritoneal signs Extremitie: no edema, no cyanosis, no clubbing b/l LE Back: no CVA tenderness b/l; healed surgical scar over L4-L5 on exam Patient noted over the genital urinary area: * in the intrigenous folds she has erythema, noted malodorous, no noted discharge over the intrious and inner thigh and over the gluteal cleft she has noted pustular/fluid filled plaque over the left buttock and erythema as well. the cleft itself has mild spacing but no drainage noted. over genital exam: labia majora (right) more indurated compared to labia majora (left). Outline is present from the day before. We will continue to monitor for clinical improvement. Patient is on empiric IV abx and antifungal. F/u cultures. Patient's vancomycin trough taken in error; intended adjustment in dose Vancomycin trough 2:30 AM 05/21/18. Surgery has recommended for warm compresses every 20 min TID..please follow-up with nursing to see this is accomplished tomorrow. Assessment/Plan 1) SIRS Cellulitis Fungal Rash Urinary Tract Infection Assessment/Plan * Criteria: fever, tachycardia, leukopenia Source: cellulitis; fungal rash * Lactic acid: 1.8 * Code sepsis not called given low lactate level * Risk Factors: diabetes; immunocomprised secondary to steroids for RA * * IV Abx: * c/w Zosyn 3.375g IVPB q8 (active since 05/19/18) * c/w Vancomycin 1g IVPB q12H (active since 05/19/18)-->Vancomycin trough at 2: 30 in AM to adjust dosage for cellulitis * c/w Diflucan 200mg IVPB Q24H (active since 05/19/18)-->Monitor LFTs * Infectious Disease (Dr. Linn) on case-->help appreciated * Corrected consult in the EMR * General surgery (Dr. Collins) on case--> help appreciated * warm compresses every 20 min TID * Ob-Hospitalist--->pending consult for initial recommendations * Florastor 250mg PO BID * CT abd/pelvis PO and IV contrast impression per radiology report: Limited cellulitis affects suprapubic dermis and local subcutaneous fat as well as the dermis related to the gluteal fold with mild and superior segment and local subcutaneous fat as well. No abscess or emphysema soft tissue changes related. 2) DM type 2 Assessment/plan * a1c: 7.2 * Lipid panel: 178 TG, 128 cholestrol, 66 LDL, 29 HDL * Hold Metformin on admission * Novolog ISS sc (low) * Hypoglycemic protocol 3) Hypokalemia Assessment/plan * K 3.3 on admission * replete today 4) Dysuria urinary incontinence Assessment/plan * UA: prot 1+, blood 1+, Leuk Est 3+, WBC 31 H, Bacteria + * Urine culture (05/19/18): gram negative debbie * IVF 50ml/hr NS * Patient is on empiric antibiotic therapy until culture narrows choices 5) Abnormal EKG-->resolved Assessment/Plan * Flipped P waves in Lead V1 * Repeat EKG: NSR 6) History of Lipid Disorder Assessment/Plan * Lipid panel: 178 TG, 128 cholestrol, 66 LDL, 29 HDLLipid Disorder in AM * Atorvastatin 10mg POqHS-->will be switched to equivalent on hospital formulary 7) History of Hypertension Assessment/Plan * Check monitor vital signs * Coreg 25mg PO daily * Lisinopril 5mg PO daily 8) Leukopenia Assessment/Plan * HIV 1/2 Abs f/u * note patient is on steroids for RA and has diabetes 10) Thrombocytopenia Assessment/Plan * mild * Hold chemical anticoagulation given thrombocytopenia * no noted ecchymoses nor petechiae on my exam 11)PPX: * SCDs * ASA 81mg PO daily * Chemical anticoagulation hold given mild thrombocytopenia * Full code
[2018-05-21 02:58] LABS: BASO % 0.8 % (0.0-2.0); EOS # 0.1 K/uL (0.0-0.7); EOS % 1.8 % (0.0-4.0); HEMOGLOBIN 13.3 g/dL (11.0-16.0); LYMPH # 1.1 K/uL (1.0-4.3); LYMPH % 35.6 % (20.0-40.0); MEAN CELL VOLUME 94.3 fL (81.0-99.0); MEAN CORPUSCULAR HEMOGLOBIN 31.9 pg (27.0-31.0); MEAN CORPUSCULAR HGB CONC 33.8 g/dL (33.0-37.0); MEAN PLATELET VOLUME 8.7 fL (7.2-11.7); MONO # 0.4 K/uL (0.0-0.8); MONO % 11.6 % (0.0-10.0); NEUT # 1.6 K/uL (1.8-7.0); NEUT % 50.2 % (50.0-75.0); NRBC % 0.2 % (0.0-2.0); RBC 4.18 Mil/uL (3.80-5.20); RED CELL DISTRIBUTION WIDTH 13.7 % (11.5-14.5); WHITE BLOOD COUNT 3.1 K/uL (4.8-10.8)
[2018-05-21 03:44] LABS: ALB/GLOB RATIO 1.2 (1.0-2.1); ALBUMIN 3.4 g/dL (3.5-5.0); ALT/SGPT 23 U/L (9-52); AST/SGOT 20 U/L (14-36); BLOOD UREA NITROGEN 12 mg/dL (7-17); CALCIUM 8.5 mg/dl (8.6-10.4); GFR NON-AFRICAN AMERICAN > 60
[2018-05-21] MEDS: Vancomycin 1 gm/NS 200 ml 1 GM/200 ML BAG IVPB SCH (04:00)
[2018-05-21] MEDS: Piperacillin/Tazobact 3.375 GM in Sodium Chloride 100 ML IVPB SCH (06:15)
--- NOTE | 2018-05-21 07:36 | CP.PCM.PN ---
Subjective - Date & Time of Evaluation Date of Evaluation: 05/21/18 Time of Evaluation: 07:36 - Subjective Subjective: PGY-1 Medicine Progress Note for Dr. Lima covering for Dr. Mccormack Patient was seen and examined today at bedside in no acute distress. Nurse reports no overnight events. Patient has no acute complaints. Denies chest pain , shortness of breath, abdominal pain, urinary frequency. Is still complaining of burning on urination which resolves after a few minutes. Objective - Vital Signs/Intake and Output Vital Signs (last 24 hours): Temp Pulse Resp BP Pulse Ox 98.8 F 72 20 111/65 96 05/21/18 00:00 05/21/18 00:00 05/21/18 00:00 05/21/18 00:00 05/21/18 00:00 Intake and Output: 05/21/18 05/21/18 06:59 18:59 Intake Total 250 Balance 250 - Medications Medications: Current Medications Acetaminophen (Tylenol 325mg Tab) 650 mg PO Q6 PRN PRN Reason: Fever >100.4 F Last Admin: 05/20/18 21:45 Dose: 650 mg Carvedilol (Coreg) 25 mg PO DAILY [facility] Last Admin: 05/20/18 10:55 Dose: 25 mg Clotrimazole (Lotrimin 1%) 1 gm TOP BID [facility] Last Admin: 05/19/18 18:15 Dose: 1 gm Dextrose (Dextrose 50% Inj) 50 ml IVP ONCE PRN PRN Reason: Hypoglycemia Dextrose (Dextrose 50% Inj) 0 ml IV STAT PRN; Protocol PRN Reason: Hypoglycemia Protocol Dextrose (Glutose 15) 0 gm PO ONCE PRN; Protocol PRN Reason: Hypoglycemia Protocol Glucagon (Glucagen Diagnostic Kit) 0 mg IM STAT PRN; Protocol PRN Reason: Hypoglycemia Protocol Vancomycin HCl (Vancomycin 1gm In Normal Saline Addvantage) 1 gm in 250 mls @ 166.667 mls/hr IV STAT [facility] PRN Reason: Protocol Last Admin: 05/19/18 13:27 Dose: 166.667 mls/hr Dextrose (Dextrose 5% In Water 1000 Ml) 1,000 mls @ 0 mls/hr IV .Q0M PRN; Protocol; Per Protocol PRN Reason: Hypoglycemia Protocol Fluconazole (Diflucan Iv 200 Mg/100 Ml Ns) 100 mls @ 100 mls/hr IVPB DAILY [facility] PRN Reason: Protocol Last Admin: 05/20/18 10:54 Dose: 100 mls/hr Piperacillin Sod/Tazobactam (Sod 3.375 gm/ Sodium Chloride) 100 mls @ 200 mls/ hr IVPB Q8H [facility] PRN Reason: Protocol Last Admin: 05/21/18 06:15 Dose: 200 mls/hr Vancomycin/Sodium Chloride (Vancomycin 1 Gm/Ns 200 Ml) 1 gm in 200 mls @ 166.6 mls/hr IVPB Q12H [facility] PRN Reason: Protocol Stop: 05/25/18 03:01 Last Admin: 05/21/18 04:00 Dose: 166.6 mls/hr Insulin Aspart (Novolog) 0 unit SC ACHS [facility] PRN Reason: Protocol Last Admin: 05/20/18 21:45 Dose: Not Given Lisinopril (Zestril) 5 mg PO DAILY [facility] Last Admin: 05/20/18 10:57 Dose: 5 mg Rosuvastatin Calcium (Crestor) 5 mg PO DIN [facility] Last Admin: 05/19/18 18:14 Dose: 5 mg Saccharomyces Boulardii (Florastor) 250 mg PO BID [facility] Last Admin: 05/20/18 17:33 Dose: 250 mg - Labs Labs: 05/21/18 02:53 05/21/18 02:53 - Constitutional Appears: Non-toxic, No Acute Distress - Head Exam Head Exam: ATRAUMATIC, NORMOCEPHALIC - Eye Exam Eye Exam: EOMI, Normal appearance - Neck Exam Neck Exam: absent: Lymphadenopathy - Respiratory Exam Respiratory Exam: Clear to Ausculation Bilateral, NORMAL BREATHING PATTERN. absent: Rales, Rhonchi - Cardiovascular Exam Cardiovascular Exam: REGULAR RHYTHM, +S1, +S2. absent: Murmur - GI/Abdominal Exam GI & Abdominal Exam: Soft, Normal Bowel Sounds. absent: Distended, Guarding, Tenderness - Exam External exam: Erythema, Lesions. absent: Swelling Additional comments: Labia majora with cellulitic changes with right labia majora more indurated than left. Prominent right inguinal lymph nodes. Inner gluteal cleft with bilateral erythema, bullae that are non-tender to palpation, Sacral cleft and left buttock: hyperpigmented scaley macular plaques that continue down towards the medial thigh. Erythema found in pubic and suprapubic area, non-tender to palpation, indurated , nonfluctation. - Extremities Exam Additional comments: peripheral pulses palpable bilaterally (radial, PT) - Back Exam Back Exam: absent: CVA tenderness (L), CVA tenderness (R) - Neurological Exam Neurological Exam: Alert, Awake, Oriented x3 - Psychiatric Exam Psychiatric exam: Normal Affect, Normal Mood Assessment and Plan - Assessment and Plan (Free Text) Assessment: 72yoF with PMH DM2, HTN, lipid disorder, RA admitted for rash: cellulitis vs. fungal. Plan: Right Groin Cellulitis, fungal rash, rule out abscess - SIRS Criteria met on admission: fever (T-fxb=173 at 00:00 05/20/2018, afebrile on repeat at 07:00), Tachycardia, leukopenia - Patient afebrile at time of evaluation - Lactic acid=1.8 on admission - Blood cultures prelim: no growth x 48 hours, pending gram stain - Wound culture: coagulase neg staphylococcus - Urine cultures: klebsiella pneumoniae - Stop Zosyn 3.375g IVPB q8 (05/19/18-05/21/18, active 3 days) - Continue Vancomycin 1g IVPB q12H (active since 05/19/18) - Continue Diflucan 200mg IVPB Q24H (active since 05/19/18) - Start Ciprofloxacin 400mg IVPB Q12H (active since 05/21/18) - Continue Clotrimin cream top BID - Risk Factors: diabetes; immunocompromised secondary to steroids for RA - CT abd/pelvis PO and IV contrast impression per radiology report: Limited cellulitis affects suprapubic dermis and local subcutaneous fat as well as the dermis related to the gluteal fold with mild and superior segment and local subcutaneous fat as well. No abscess or emphysema soft tissue changes related. - Infectious Disease (Dr. Linn) consulted, recommendations appreciated - General surgery (Dr. Collins) consulted, recommendations appreciated: Warm compress application for 20 minutes TID - Gynecology consulted: Dr. Zepeda, recommendations appreciated - Evaluated by Dr. Carpenter (05/21) - not CLERICAL ADJUDICATOR issue, will sign off - Continue Florastor 250mg PO BID - Tylenol 650mg PO Q6H for severe pain and/or T>100.4F - Continue NS 50cc/hr - Continue to monitor with serial exams Hypokalemia, - K=3.6 (3.5 on admission) - Magnesium=1.7 (05/20) - Continue to monitor with AM labs, and replete as necessary UTI - Blood cultures: no growth x 48 hours, pending gram stain - Urinalysis 05/19: protein 1+, blood 1+, Leuk Est 3+, WBC 31 H, Bacteria + - Urine culture: klebsiella pneumoniae - Patient is on empiric antibiotic therapy until culture narrows choices Abnormal EKG on admission, resolved - Initial EKG (05/19): Flipped P waves in Lead V1 - Repeat EKG today: Normal sinus rhythm DM type 2 - Hemoglobin A1C = 7.2 - Continue Novolog ISS sc (low) - Continue to hold Metformin - Continue Novolog ISS sc (low) - Hypoglycemic protocol History of Lipid Disorder - Lipid Panel Results: [id number]=254, HDL=29, LDL=66, Total Cholesterol= 128 - Continue equivalent of home-med (Atorvastatin 10mg POqHS) History of Hypertension, stable - JO=139/72 - Monitor vital signs - Gentle IV hydration History of Rheumatoid Arthritis - Hold home meds during admission (Methylprednisolone 4mg QD, Leflunamide 20mg QD, Xeljanz 11mg QD) Leukopenia likely due to patient being on home steroids - WBC=3.1, down from 4.6 on 05/19 - HIV 1/2 Abs pending results - Discontinue home steroids for RA - Continue to monitor Thrombocytopenia, Mild - Euapqjtoz=718 (down from 118 on 05/19) - Hold chemical anticoagulation given thrombocytopenia - No noted ecchymoses and/or petechiae on physical exam History of Osteoporosis - Hold home med during admission (Risendronate 150mg Monthly) PPx: - SCDs - ASA 81mg PO daily - Chemical anticoagulation hold given mild thrombocytopenia - Full code - On gentle IV hydration d/w Dr. Janie Elena PGY-1
[2018-05-21] MEDS: (Novolog) Insulin Aspart, Recombinant 100 u/ml 10 ml vial SC SCH ×4 (08:02→22:25)
--- NOTE | 2018-05-21 08:55 | CARD ---
APPROVED REPORT Date of service: 05/19/2018 EKG Measurement Heart [id number] <Conclusion> Normal sinus rhythm Normal ECG
[2018-05-21] MEDS: Fluconazole IV 200mg/100 ml NS 100 ML IVPB SCH (09:51)
[2018-05-21] MEDS: Clotrimazole 1% Cream(30 gm) TOP SCH ×2 (09:52→18:00)
--- NOTE | 2018-05-21 10:32 | CP.PCM.PN ---
Subjective - Date & Time of Evaluation Date of Evaluation: 05/21/18 Time of Evaluation: 06:30 - Subjective Subjective: PGY-1 general surgery note for Dr. Collins service Patient is seen and examined at bedside. Patient states feeling better than yesterday. Patient denies any acute event overnight. Patient says pain and itchiness in groin area has decreased. pt denies fever or chills. Objective - Vital Signs/Intake and Output Vital Signs (last 24 hours): Temp Pulse Resp BP Pulse Ox 98.5 F 81 21 145/72 97 05/21/18 08:00 05/21/18 08:00 05/21/18 08:00 05/21/18 09:49 05/21/18 08:00 Intake and Output: 05/21/18 05/21/18 06:59 18:59 Intake Total 850 Balance 850 - Medications Medications: Current Medications Acetaminophen (Tylenol 325mg Tab) 650 mg PO Q6 PRN PRN Reason: Fever >100.4 F Last Admin: 05/20/18 21:45 Dose: 650 mg Carvedilol (Coreg) 25 mg PO DAILY [facility] Last Admin: 05/21/18 09:49 Dose: 25 mg Clotrimazole (Lotrimin 1%) 1 gm TOP BID [facility] Last Admin: 05/21/18 09:52 Dose: 1 gm Dextrose (Dextrose 50% Inj) 50 ml IVP ONCE PRN PRN Reason: Hypoglycemia Dextrose (Dextrose 50% Inj) 0 ml IV STAT PRN; Protocol PRN Reason: Hypoglycemia Protocol Dextrose (Glutose 15) 0 gm PO ONCE PRN; Protocol PRN Reason: Hypoglycemia Protocol Glucagon (Glucagen Diagnostic Kit) 0 mg IM STAT PRN; Protocol PRN Reason: Hypoglycemia Protocol Vancomycin HCl (Vancomycin 1gm In Normal Saline Addvantage) 1 gm in 250 mls @ 166.667 mls/hr IV STAT [facility] PRN Reason: Protocol Last Admin: 05/19/18 13:27 Dose: 166.667 mls/hr Dextrose (Dextrose 5% In Water 1000 Ml) 1,000 mls @ 0 mls/hr IV .Q0M PRN; Protocol; Per Protocol PRN Reason: Hypoglycemia Protocol Fluconazole (Diflucan Iv 200 Mg/100 Ml Ns) 100 mls @ 100 mls/hr IVPB DAILY [facility] PRN Reason: Protocol Last Admin: 05/21/18 09:51 Dose: 100 mls/hr Piperacillin Sod/Tazobactam (Sod 3.375 gm/ Sodium Chloride) 100 mls @ 200 mls/ hr IVPB Q8H [facility] PRN Reason: Protocol Last Admin: 05/21/18 06:15 Dose: 200 mls/hr Vancomycin/Sodium Chloride (Vancomycin 1 Gm/Ns 200 Ml) 1 gm in 200 mls @ 166.6 mls/hr IVPB Q12H [facility] PRN Reason: Protocol Stop: 05/25/18 03:01 Last Admin: 05/21/18 04:00 Dose: 166.6 mls/hr Insulin Aspart (Novolog) 0 unit SC ACHS [facility] PRN Reason: Protocol Last Admin: 05/21/18 08:02 Dose: Not Given Lisinopril (Zestril) 5 mg PO DAILY [facility] Last Admin: 05/21/18 09:49 Dose: 5 mg Rosuvastatin Calcium (Crestor) 5 mg PO DIN [facility] Last Admin: 05/19/18 18:14 Dose: 5 mg Saccharomyces Boulardii (Florastor) 250 mg PO BID [facility] Last Admin: 05/20/18 17:33 Dose: 250 mg - Labs Labs: 05/21/18 02:53 05/21/18 02:53 - Constitutional Appears: Well, Non-toxic, No Acute Distress - Head Exam Head Exam: ATRAUMATIC, NORMAL INSPECTION, NORMOCEPHALIC - Eye Exam Eye Exam: EOMI, Normal appearance - ENT Exam ENT Exam: Mucous Membranes Moist, Normal Exam - Neck Exam Neck Exam: Full ROM, Normal Inspection - Respiratory Exam Respiratory Exam: NORMAL BREATHING PATTERN. absent: Accessory Muscle Use, Respiratory Distress - GI/Abdominal Exam GI & Abdominal Exam: Soft - Exam Additional comments: Cellulitis R groin involving labia majora, inner gluteus. Pubic and suprapubic area erythema noted, nontender to palpation, indurated, nonfluctation. - Extremities Exam Extremities Exam: Full ROM, Normal Inspection - Neurological Exam Neurological Exam: Alert, Awake, Oriented x3 - Psychiatric Exam Psychiatric exam: Normal Affect, Normal Mood Assessment and Plan - Assessment and Plan (Free Text) Assessment: 72 yo F with Rt groin cellulitis Plan: -continue abx -warm compresses every 20 min TID -f/u [employer]ER recs - help appreciated -continue Serial exams Discussed plan with Dr Karina Hill PGY-1
[2018-05-21] MEDS: Saccharomyces Boulardi 250 mg Cap PO SCH ×2 (10:40→17:16)
--- NOTE | 2018-05-21 11:38 | CP.PCM.CON ---
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 She states the rash is itchy, however denies any pain or any other symptoms. Denies fevers, chills, hematuria, abdominal pain, vaginal discharge. Past OB history: baby boy 1974, baby boy 1972 in [place]. 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 Last menstrual period around 51 yo. Last pap 3 months prior was normal. Annual mammograms unremarkable. Allergies: NKDA PMH: Type 2 DM, HTN, dyslipidemia, RA PSH: Back surgery (2017) Social: Denies alcohol, tobacco, recreational drug use PMD: Dr. Jose Ledbetter Review of Systems - Constitutional Constitutional: absent: Chills, Fever, Headache - Breasts Breasts: absent: Change in Shape, Mass, Skin Changes - Reproductive: Female Reproductive:Female: Post Menopausal, Genital Pruritis. absent: Abnormal Vaginal Bleeding, Pelvic Pain Past Patient History - Past Medical History & Family History Past Medical History?: Yes Pertinent Family History: Mother: breast cancer Father: colon cancer - Past Social History Smoking Status: Never Smoked Chewing Tobacco Use: No Cigar Use: No Alcohol: None Drugs: Denies - CARDIAC Hx Hypercholesterolemia: Yes Hx Hypertension: Yes - ENDOCRINE/METABOLIC Hx Diabetes Mellitus Type 2: Yes - MUSCULOSKELETAL/RHEUMATOLOGICAL Hx Arthritis: Yes - PSYCHIATRIC Hx Substance Use: No - SURGICAL HISTORY Hx Surgeries: Yes - ANESTHESIA Hx Anesthesia: Yes Hx Anesthesia Reactions: No Hx Malignant Hyperthermia: No Meds Allergies/Adverse Reactions: Allergies Allergy/AdvReac Type Severity Reaction Status Date / Time No Known Allergies Allergy Verified 05/19/18 10:28 - Medications Medications: Current Medications Acetaminophen (Tylenol 325mg Tab) 650 mg PO Q6 PRN PRN Reason: Fever >100.4 F Last Admin: 05/20/18 21:45 Dose: 650 mg Carvedilol (Coreg) 25 mg PO DAILY [facility] Last Admin: 05/21/18 09:49 Dose: 25 mg Clotrimazole (Lotrimin 1%) 1 gm TOP BID [facility] Last Admin: 05/21/18 09:52 Dose: 1 gm Dextrose (Dextrose 50% Inj) 50 ml IVP ONCE PRN PRN Reason: Hypoglycemia Dextrose (Dextrose 50% Inj) 0 ml IV STAT PRN; Protocol PRN Reason: Hypoglycemia Protocol Dextrose (Glutose 15) 0 gm PO ONCE PRN; Protocol PRN Reason: Hypoglycemia Protocol Glucagon (Glucagen Diagnostic Kit) 0 mg IM STAT PRN; Protocol PRN Reason: Hypoglycemia Protocol Vancomycin HCl (Vancomycin 1gm In Normal Saline Addvantage) 1 gm in 250 mls @ 166.667 mls/hr IV STAT [facility] PRN Reason: Protocol Last Admin: 05/19/18 13:27 Dose: 166.667 mls/hr Dextrose (Dextrose 5% In Water 1000 Ml) 1,000 mls @ 0 mls/hr IV .Q0M PRN; Protocol; Per Protocol PRN Reason: Hypoglycemia Protocol Fluconazole (Diflucan Iv 200 Mg/100 Ml Ns) 100 mls @ 100 mls/hr IVPB DAILY [facility] PRN Reason: Protocol Last Admin: 05/21/18 09:51 Dose: 100 mls/hr Piperacillin Sod/Tazobactam (Sod 3.375 gm/ Sodium Chloride) 100 mls @ 200 mls/ hr IVPB Q8H [facility] PRN Reason: Protocol Last Admin: 05/21/18 06:15 Dose: 200 mls/hr Vancomycin/Sodium Chloride (Vancomycin 1 Gm/Ns 200 Ml) 1 gm in 200 mls @ 166.6 mls/hr IVPB Q12H [facility] PRN Reason: Protocol Stop: 05/25/18 03:01 Last Admin: 05/21/18 04:00 Dose: 166.6 mls/hr Insulin Aspart (Novolog) 0 unit SC ACHS [facility] PRN Reason: Protocol Last Admin: 05/21/18 08:02 Dose: Not Given Lisinopril (Zestril) 5 mg PO DAILY [facility] Last Admin: 05/21/18 09:49 Dose: 5 mg Rosuvastatin Calcium (Crestor) 5 mg PO DIN [facility] Last Admin: 05/19/18 18:14 Dose: 5 mg Saccharomyces Boulardii (Florastor) 250 mg PO BID [facility] Last Admin: 05/20/18 17:33 Dose: 250 mg Physical Exam - Constitutional Appears: Non-toxic, No Acute Distress - Head Exam Head Exam: ATRAUMATIC, NORMOCEPHALIC - Eye Exam Eye Exam: EOMI, Normal appearance - ENT Exam ENT Exam: Mucous Membranes Moist - Neck Exam Neck exam: Positive for: Normal Inspection - Respiratory Exam Respiratory Exam: Clear to Auscultation Bilateral, NORMAL BREATHING PATTERN - Cardiovascular Exam Cardiovascular Exam: REGULAR RHYTHM, +S1, +S2 - GI/Abdominal Exam GI & Abdominal Exam: Normal Bowel Sounds, Soft. absent: Distended, Firm, Guarding, Mass - Exam Additional comments: Macular rash extending from mons pubis to gluteal cleft, nontender. No signs of bleeding. Pasty off white discharge in perineum with no odor. Otherwise external genitalia normal. - Extremities Exam Extremities exam: Positive for: normal inspection - Neurological Exam Neurological exam: Alert, Oriented x3 - Psychiatric Exam Psychiatric exam: Normal Affect, Normal Mood - Skin Skin Exam: Dry, Intact, Warm Results - Vital Signs Recent Vital Signs: Last Vital Signs Temp 98.5 F 05/21/18 08:00 Pulse 81 05/21/18 08:00 Resp 21 05/21/18 08:00 BP 145/72 05/21/18 09:49 Pulse Ox 97 05/21/18 08:00 - Labs Result Diagrams: 05/21/18 02:53 05/21/18 02:53 Labs: Laboratory Results - last 24 hr 05/20/18 05/20/18 05/21/18 16:32 21:44 02:53 WBC 3.1 L RBC 4.18 Hgb 13.3 Hct 39.4 MCV 94.3 MCH 31.9 H MCHC 33.8 RDW 13.7 Plt Count 108 L MPV 8.7 Neut % (Auto) 50.2 Lymph % (Auto) 35.6 [place] % (Auto) 11.6 H Eos % (Auto) 1.8 Baso % (Auto) 0.8 Neut # (Auto) 1.6 L Lymph # (Auto) 1.1 [place] # (Auto) 0.4 Eos # (Auto) 0.1 Baso # (Auto) 0.0 Sodium Potassium Chloride Carbon Dioxide Anion Gap BUN Creatinine Est GFR ( Amer) Est GFR (Non-Af Amer) POC Glucose (mg/dL) 140 H 148 H Random Glucose Calcium Total Bilirubin AST ALT Alkaline Phosphatase Total Protein Albumin Globulin Albumin/Globulin Ratio Vancomycin Trough HIV 1&2 Antibody Screen 05/21/18 05/21/18 05/21/18 02:53 02:53 02:53 WBC RBC Hgb Hct MCV MCH MCHC RDW Plt Count MPV Neut % (Auto) Lymph % (Auto) [place] % (Auto) Eos % (Auto) Baso % (Auto) Neut # (Auto) Lymph # (Auto) [place] # (Auto) Eos # (Auto) Baso # (Auto) Sodium 142 Potassium 3.6 Chloride 107 Carbon Dioxide 24 Anion Gap 15 BUN 12 Creatinine 0.6 L Est GFR ( Amer) > 60 Est GFR (Non-Af Amer) > 60 POC Glucose (mg/dL) Random Glucose 116 H Calcium 8.5 L Total Bilirubin 0.9 AST 20 ALT 23 Alkaline Phosphatase 35 L Total Protein 6.2 L Albumin 3.4 L Globulin 2.8 Albumin/Globulin Ratio 1.2 Vancomycin Trough 9.9 HIV 1&2 Antibody Screen Negative 05/21/18 05/21/18 07:32 11:22 WBC RBC Hgb Hct MCV MCH MCHC RDW Plt Count MPV Neut % (Auto) Lymph % (Auto) [place] % (Auto) Eos % (Auto) Baso % (Auto) Neut # (Auto) Lymph # (Auto) [place] # (Auto) Eos # (Auto) Baso # (Auto) Sodium Potassium Chloride Carbon Dioxide Anion Gap BUN Creatinine Est GFR ( Amer) Est GFR (Non-Af Amer) POC Glucose (mg/dL) 114 H 136 H Random Glucose Calcium Total Bilirubin AST ALT Alkaline Phosphatase Total Protein Albumin Globulin Albumin/Globulin Ratio Vancomycin Trough HIV 1&2 Antibody Screen Assessment & Plan - Assessment and Plan (Free Text) Plan: Rash - Likely fungal in etiology - Patient is symptomatically improving - Abd/pelvis CT shows limited cellulitis affects suprapubic dermis and local subcutaneous fat as well as the dermis related to the gluteal fold with mild and superior segment and local subcutaneous fat. No abscess or emphysema soft tissue change related. - Patient on Diflucan 200 mg IV daily, clotrimazole 1% cream topical BID - Continue management per medicine team Case seen and discussed with attending physician Dr. Carpenter - Date & Time Date: 05/21/18 Time: 11:00 <Meliza Carpenter - Last Filed: 05/21/18 14:27> Meds - Medications Medications: Current Medications Acetaminophen (Tylenol 325mg Tab) 650 mg PO Q6 PRN PRN Reason: Fever >100.4 F Last Admin: 05/20/18 21:45 Dose: 650 mg Carvedilol (Coreg) 25 mg PO DAILY [facility] Last Admin: 05/21/18 09:49 Dose: 25 mg Clotrimazole (Lotrimin 1%) 1 gm TOP BID [facility] Last Admin: 05/21/18 09:52 Dose: 1 gm Dextrose (Dextrose 50% Inj) 50 ml IVP ONCE PRN PRN Reason: Hypoglycemia Dextrose (Dextrose 50% Inj) 0 ml IV STAT PRN; Protocol PRN Reason: Hypoglycemia Protocol Dextrose (Glutose 15) 0 gm PO ONCE PRN; Protocol PRN Reason: Hypoglycemia Protocol Glucagon (Glucagen Diagnostic Kit) 0 mg IM STAT PRN; Protocol PRN Reason: Hypoglycemia Protocol Vancomycin HCl (Vancomycin 1gm In Normal Saline Addvantage) 1 gm in 250 mls @ 166.667 mls/hr IV STAT [facility] PRN Reason: Protocol Last Admin: 05/19/18 13:27 Dose: 166.667 mls/hr Dextrose (Dextrose 5% In Water 1000 Ml) 1,000 mls @ 0 mls/hr IV .Q0M PRN; Protocol; Per Protocol PRN Reason: Hypoglycemia Protocol Fluconazole (Diflucan Iv 200 Mg/100 Ml Ns) 100 mls @ 100 mls/hr IVPB DAILY [facility] PRN Reason: Protocol Last Admin: 05/21/18 09:51 Dose: 100 mls/hr Ciprofloxacin (Cipro 400mg/200ml Dsw) 400 mg in 200 mls @ 133 mls/hr IVPB Q12H [facility] PRN Reason: Protocol Insulin Aspart (Novolog) 0 unit SC ACHS [facility] PRN Reason: Protocol Last Admin: 05/21/18 12:52 Dose: Not Given Lisinopril (Zestril) 5 mg PO DAILY [facility] Last Admin: 05/21/18 09:49 Dose: 5 mg Rosuvastatin Calcium (Crestor) 5 mg PO DIN [facility] Last Admin: 05/19/18 18:14 Dose: 5 mg Saccharomyces Boulardii (Florastor) 250 mg PO BID [facility] Last Admin: 05/21/18 10:40 Dose: 250 mg Results - Vital Signs Recent Vital Signs: Last Vital Signs Temp 98.5 F 05/21/18 08:00 Pulse 81 05/21/18 08:00 Resp 21 05/21/18 08:00 BP 145/72 05/21/18 09:49 Pulse Ox 97 05/21/18 08:00 - Labs Result Diagrams: 05/21/18 02:53 05/21/18 02:53 Labs: Laboratory Results - last 24 hr 05/20/18 05/20/18 05/21/18 16:32 21:44 02:53 WBC 3.1 L RBC 4.18 Hgb 13.3 Hct 39.4 MCV 94.3 MCH 31.9 H MCHC 33.8 RDW 13.7 Plt Count 108 L MPV 8.7 Neut % (Auto) 50.2 Lymph % (Auto) 35.6 [place] % (Auto) 11.6 H Eos % (Auto) 1.8 Baso % (Auto) 0.8 Neut # (Auto) 1.6 L Lymph # (Auto) 1.1 [place] # (Auto) 0.4 Eos # (Auto) 0.1 Baso # (Auto) 0.0 Sodium Potassium Chloride Carbon Dioxide Anion Gap BUN Creatinine Est GFR ( Amer) Est GFR (Non-Af Amer) POC Glucose (mg/dL) 140 H 148 H Random Glucose Calcium Total Bilirubin AST ALT Alkaline Phosphatase Total Protein Albumin Globulin Albumin/Globulin Ratio Vancomycin Trough HIV 1&2 Antibody Screen 05/21/18 05/21/18 05/21/18 02:53 02:53 02:53 WBC RBC Hgb Hct MCV MCH MCHC RDW Plt Count MPV Neut % (Auto) Lymph % (Auto) [place] % (Auto) Eos % (Auto) Baso % (Auto) Neut # (Auto) Lymph # (Auto) [place] # (Auto) Eos # (Auto) Baso # (Auto) Sodium 142 Potassium 3.6 Chloride 107 Carbon Dioxide 24 Anion Gap 15 BUN 12 Creatinine 0.6 L Est GFR ( Amer) > 60 Est GFR (Non-Af Amer) > 60 POC Glucose (mg/dL) Random Glucose 116 H Calcium 8.5 L Total Bilirubin 0.9 AST 20 ALT 23 Alkaline Phosphatase 35 L Total Protein 6.2 L Albumin 3.4 L Globulin 2.8 Albumin/Globulin Ratio 1.2 Vancomycin Trough 9.9 HIV 1&2 Antibody Screen Negative 05/21/18 05/21/18 07:32 11:22 WBC RBC Hgb Hct MCV MCH MCHC RDW Plt Count MPV Neut % (Auto) Lymph % (Auto) [place] % (Auto) Eos % (Auto) Baso % (Auto) Neut # (Auto) Lymph # (Auto) [place] # (Auto) Eos # (Auto) Baso # (Auto) Sodium Potassium Chloride Carbon Dioxide Anion Gap BUN Creatinine Est GFR ( Amer) Est GFR (Non-Af Amer) POC Glucose (mg/dL) 114 H 136 H Random Glucose Calcium Total Bilirubin AST ALT Alkaline Phosphatase Total Protein Albumin Globulin Albumin/Globulin Ratio Vancomycin Trough HIV 1&2 Antibody Screen Attending/Attestation - Attestation I have personally seen and examined this patient.: Yes I have fully participated in the care of the patient.: Yes I have reviewed all pertinent clinical information: Yes Notes (Text): 05/21/18 14:22 Patient seen and evaluated by me with the Resident. I agree with the above as documented. Expansion on global compensation director history: LMP - mid 50's. Dr. Jose Ledbetter, Internal Medical, oversees patient's global compensation director care. Most recent Pap test 2-3 months ago - negative. Mammogram 12/2017, also negative. No global compensation director intervention needed at this time. Plan: as per medical team Thank you for the pleasure of this consultation
--- NOTE | 2018-05-21 12:59 | CP.PCM.CON ---
History of Present Illness - History of Present Illness History of Present Illness: dictated Past Patient History - Past Medical History & Family History Past Medical History?: Yes - Past Social History Smoking Status: Never Smoked Chewing Tobacco Use: No Cigar Use: No Alcohol: None Drugs: Denies - CARDIAC Hx Hypercholesterolemia: Yes Hx Hypertension: Yes - ENDOCRINE/METABOLIC Hx Diabetes Mellitus Type 2: Yes - MUSCULOSKELETAL/RHEUMATOLOGICAL Hx Arthritis: Yes - PSYCHIATRIC Hx Substance Use: No - SURGICAL HISTORY Hx Surgeries: Yes - ANESTHESIA Hx Anesthesia: Yes Hx Anesthesia Reactions: No Hx Malignant Hyperthermia: No Meds Allergies/Adverse Reactions: Allergies Allergy/AdvReac Type Severity Reaction Status Date / Time No Known Allergies Allergy Verified 05/19/18 10:28 - Medications Medications: Current Medications Acetaminophen (Tylenol 325mg Tab) 650 mg PO Q6 PRN PRN Reason: Fever >100.4 F Last Admin: 05/20/18 21:45 Dose: 650 mg Carvedilol (Coreg) 25 mg PO DAILY [facility] Last Admin: 05/21/18 09:49 Dose: 25 mg Clotrimazole (Lotrimin 1%) 1 gm TOP BID [facility] Last Admin: 05/21/18 09:52 Dose: 1 gm Dextrose (Dextrose 50% Inj) 50 ml IVP ONCE PRN PRN Reason: Hypoglycemia Dextrose (Dextrose 50% Inj) 0 ml IV STAT PRN; Protocol PRN Reason: Hypoglycemia Protocol Dextrose (Glutose 15) 0 gm PO ONCE PRN; Protocol PRN Reason: Hypoglycemia Protocol Glucagon (Glucagen Diagnostic Kit) 0 mg IM STAT PRN; Protocol PRN Reason: Hypoglycemia Protocol Vancomycin HCl (Vancomycin 1gm In Normal Saline Addvantage) 1 gm in 250 mls @ 166.667 mls/hr IV STAT [facility] PRN Reason: Protocol Last Admin: 05/19/18 13:27 Dose: 166.667 mls/hr Dextrose (Dextrose 5% In Water 1000 Ml) 1,000 mls @ 0 mls/hr IV .Q0M PRN; Protocol; Per Protocol PRN Reason: Hypoglycemia Protocol Fluconazole (Diflucan Iv 200 Mg/100 Ml Ns) 100 mls @ 100 mls/hr IVPB DAILY [facility] PRN Reason: Protocol Last Admin: 05/21/18 09:51 Dose: 100 mls/hr Piperacillin Sod/Tazobactam (Sod 3.375 gm/ Sodium Chloride) 100 mls @ 200 mls/ hr IVPB Q8H [facility] PRN Reason: Protocol Last Admin: 05/21/18 06:15 Dose: 200 mls/hr Vancomycin/Sodium Chloride (Vancomycin 1 Gm/Ns 200 Ml) 1 gm in 200 mls @ 166.6 mls/hr IVPB Q12H [facility] PRN Reason: Protocol Stop: 05/25/18 03:01 Last Admin: 05/21/18 04:00 Dose: 166.6 mls/hr Insulin Aspart (Novolog) 0 unit SC ACHS [facility] PRN Reason: Protocol Last Admin: 05/21/18 12:52 Dose: Not Given Lisinopril (Zestril) 5 mg PO DAILY [facility] Last Admin: 05/21/18 09:49 Dose: 5 mg Rosuvastatin Calcium (Crestor) 5 mg PO DIN [facility] Last Admin: 05/19/18 18:14 Dose: 5 mg Saccharomyces Boulardii (Florastor) 250 mg PO BID [facility] Last Admin: 05/21/18 10:40 Dose: 250 mg Results - Vital Signs Recent Vital Signs: Last Vital Signs Temp 98.5 F 05/21/18 08:00 Pulse 81 05/21/18 08:00 Resp 21 05/21/18 08:00 BP 145/72 05/21/18 09:49 Pulse Ox 97 05/21/18 08:00 - Labs Result Diagrams: 05/21/18 02:53 05/21/18 02:53 Labs: Laboratory Results - last 24 hr 05/20/18 05/20/18 05/21/18 16:32 21:44 02:53 WBC 3.1 L RBC 4.18 Hgb 13.3 Hct 39.4 MCV 94.3 MCH 31.9 H MCHC 33.8 RDW 13.7 Plt Count 108 L MPV 8.7 Neut % (Auto) 50.2 Lymph % (Auto) 35.6 [place] % (Auto) 11.6 H Eos % (Auto) 1.8 Baso % (Auto) 0.8 Neut # (Auto) 1.6 L Lymph # (Auto) 1.1 [place] # (Auto) 0.4 Eos # (Auto) 0.1 Baso # (Auto) 0.0 Sodium Potassium Chloride Carbon Dioxide Anion Gap BUN Creatinine Est GFR ( Amer) Est GFR (Non-Af Amer) POC Glucose (mg/dL) 140 H 148 H Random Glucose Calcium Total Bilirubin AST ALT Alkaline Phosphatase Total Protein Albumin Globulin Albumin/Globulin Ratio Vancomycin Trough HIV 1&2 Antibody Screen 05/21/18 05/21/18 05/21/18 02:53 02:53 02:53 WBC RBC Hgb Hct MCV MCH MCHC RDW Plt Count MPV Neut % (Auto) Lymph % (Auto) [place] % (Auto) Eos % (Auto) Baso % (Auto) Neut # (Auto) Lymph # (Auto) [place] # (Auto) Eos # (Auto) Baso # (Auto) Sodium 142 Potassium 3.6 Chloride 107 Carbon Dioxide 24 Anion Gap 15 BUN 12 Creatinine 0.6 L Est GFR ( Amer) > 60 Est GFR (Non-Af Amer) > 60 POC Glucose (mg/dL) Random Glucose 116 H Calcium 8.5 L Total Bilirubin 0.9 AST 20 ALT 23 Alkaline Phosphatase 35 L Total Protein 6.2 L Albumin 3.4 L Globulin 2.8 Albumin/Globulin Ratio 1.2 Vancomycin Trough 9.9 HIV 1&2 Antibody Screen Negative 05/21/18 05/21/18 07:32 11:22 WBC RBC Hgb Hct MCV MCH MCHC RDW Plt Count MPV Neut % (Auto) Lymph % (Auto) [place] % (Auto) Eos % (Auto) Baso % (Auto) Neut # (Auto) Lymph # (Auto) [place] # (Auto) Eos # (Auto) Baso # (Auto) Sodium Potassium Chloride Carbon Dioxide Anion Gap BUN Creatinine Est GFR ( Amer) Est GFR (Non-Af Amer) POC Glucose (mg/dL) 114 H 136 H Random Glucose Calcium Total Bilirubin AST ALT Alkaline Phosphatase Total Protein Albumin Globulin Albumin/Globulin Ratio Vancomycin Trough HIV 1&2 Antibody Screen
[2018-05-21] MEDS: Ciprofloxacin 400mg/200ml D5W 400 MG/200 ML BAG IVPB SCH (14:29)
--- NOTE | 2018-05-21 23:46 | CON ---
Copied To: Dimple Linn MD Attending MD: Dimple Linn MD DATE: 05/21/2018 HISTORY OF PRESENT ILLNESS: The patient was seen today. Actually, I forgot to see her yesterday. She is a 72-year-old female. She came in with diabetes type 2, hypertension, also hyperlipidemia, has rheumatoid arthritis. She was having groin rash and lot of cellulitis, itching, burning and worse on urination. She is incontinent of urine. She also had a bright red colored urine, she reported. She was having itching. She has used a lot of creams and gels at home which were not helping her. Pain was localized to her private parts. PAST MEDICAL HISTORY: Significant for diabetes, hypertension, hyperlipidemia, rheumatoid arthritis. PAST SURGICAL HISTORY: She also has a surgical history of a back surgery at [facility] in 2017. FAMILY HISTORY: Her mom had rheumatoid arthritis. Father had colon cancer. SOCIAL HISTORY: She has alcohol occasionally. Denies drugs. Retired and she may have been exposed to secondhand smoking. MEDICATIONS: She is on methylprednisolone, leflunomide, Xeljanz, atorvastatin, Coreg, risedronate, and metformin. So, she is on lot of immunosuppressant drugs for rheumatoid arthritis. She was started on lot of medications including fluconazole, Zosyn, and vancomycin. ALLERGIES: SHE IS NOT ALLERGIC TO ANY MEDICINE. Past medical history as above for rheumatoid arthritis as well as for hypertension, diabetes, hyperlipidemia. REVIEW OF SYSTEMS: She complained of excessive sweating, fatigue, itchiness. Denied any ear, nose, throat problems. Denies any chest pain. No shortness of breath. No nausea. No vomiting. No diarrhea. She did come with dysuria, hematuria, and pyuria. Has groin rash and vaginal pruritus. Complained of pain and itching there. PHYSICAL EXAMINATION: VITAL SIGNS: I find her temperature is 98.5, pulse 81, blood pressure 145/72, respirations are 20. GENERAL: She speaks mostly Greek. HEENT: Head is atraumatic, normocephalic. Pupils are reacting to light. Eye movements are unremarkable. NECK: Supple. JVP is flat. Trachea is central. LUNGS: Chest wall is symmetrical. No crackles or rales heard. HEART: S1, S2 are regular. No murmurs appreciated. ABDOMEN: Soft and nontender. No guarding, no rigidity present. SKIN: She has a lot of maculopapular rash, flaking also and itching, crusting. So, she had probably fungal infection preceded with cellulitis as her temperature was 102.7 when she came. EXTREMITIES: Have no edema. LABORATORY DATA: Labs are noted. Labs show white count is 3.1, this is kind of low. She has a hemoglobin of 13.3; hematocrit 39.4; platelet count is 108, is slightly decreased. Sodium is 142, potassium 3.6, chloride 107, CO2 is 24, BUN is 15, creatinine 0.6. Wound culture was done. Blood cultures are negative. Urine culture came out Klebsiella pneumoniae and it is sensitive to Cipro as well as she has coagulase-negative staph which also seems like sensitive to Cipro, so at this time, we will change the antibiotics, vancomycin and Zosyn to Cipro, give vancomycin one more day and change the Zosyn to Cipro. IMPRESSION AND PLAN: This patient has urinary incontinence. She is immunosuppressed, being on these immunosuppressant drugs for rheumatoid arthritis. She has to see a urologist for urinary incontinence. She seems to be improving clinically. We will follow and may be switched to Cipro intravenous for now and to continue Diflucan. Dimple Linn MD
[2018-05-22] MEDS: Ciprofloxacin 400mg/200ml D5W 400 MG/200 ML BAG IVPB SCH ×2 (02:30→14:04)
[2018-05-22 06:57] LABS: BASO % 0.4 % (0.0-2.0); EOS # 0.1 K/uL (0.0-0.7); EOS % 2.5 % (0.0-4.0); HEMOGLOBIN 12.5 g/dL (11.0-16.0); LYMPH # 1.1 K/uL (1.0-4.3); MEAN CELL VOLUME 91.5 fL (81.0-99.0); MEAN CORPUSCULAR HGB CONC 34.9 g/dL (33.0-37.0); MEAN PLATELET VOLUME 8.8 fL (7.2-11.7); MONO # 0.4 K/uL (0.0-0.8); MONO % 11.6 % (0.0-10.0); NEUT # 1.8 K/uL (1.8-7.0); NEUT % 53.5 % (50.0-75.0); NRBC % 0.1 % (0.0-2.0); RBC 3.91 Mil/uL (3.80-5.20); RED CELL DISTRIBUTION WIDTH 13.5 % (11.5-14.5); WHITE BLOOD COUNT 3.4 K/uL (4.8-10.8)
[2018-05-22 07:07] LABS: ALB/GLOB RATIO 1.4 (1.0-2.1); ALBUMIN 3.3 g/dL (3.5-5.0); ALT/SGPT 31 U/L (9-52); AST/SGOT 19 U/L (14-36); BLOOD UREA NITROGEN 6 mg/dL (7-17); CALCIUM 8.3 mg/dl (8.6-10.4); GFR NON-AFRICAN AMERICAN > 60
--- NOTE | 2018-05-22 07:20 | CP.PCM.PN ---
Subjective - Date & Time of Evaluation Date of Evaluation: 05/22/18 Time of Evaluation: 07:13 - Subjective Subjective: Rj Dalton PGY-1 -- Medicine Progress Note for Dr. Lima covering for Dr. Mccormack Patient was seen and examined at bedside this morning. Patient is complaining of itchiness to her genital area, and says she was unable to get sleep last night. Otherwise the patient has no acute complaints. Denies chest pain, shortness of breath, abdominal pain, urinary frequency. Is still complaining of burning on urination which resolves after a few minutes. Objective - Vital Signs/Intake and Output Vital Signs (last 24 hours): Temp Pulse Resp BP Pulse Ox 99.2 F 75 20 139/85 100 05/22/18 05:30 05/22/18 00:00 05/22/18 00:00 05/22/18 00:00 05/22/18 00:00 Intake and Output: 05/22/18 05/22/18 06:59 18:59 Intake Total 700 Output Total 400 Balance 300 - Medications Medications: Current Medications Acetaminophen (Tylenol 325mg Tab) 650 mg PO Q6 PRN PRN Reason: Fever >100.4 F Last Admin: 05/22/18 00:30 Dose: 650 mg Carvedilol (Coreg) 25 mg PO DAILY [facility] Last Admin: 05/21/18 09:49 Dose: 25 mg Clotrimazole (Lotrimin 1%) 1 gm TOP BID [facility] Last Admin: 05/21/18 18:00 Dose: 1 gm Dextrose (Dextrose 50% Inj) 50 ml IVP ONCE PRN PRN Reason: Hypoglycemia Dextrose (Dextrose 50% Inj) 0 ml IV STAT PRN; Protocol PRN Reason: Hypoglycemia Protocol Dextrose (Glutose 15) 0 gm PO ONCE PRN; Protocol PRN Reason: Hypoglycemia Protocol Glucagon (Glucagen Diagnostic Kit) 0 mg IM STAT PRN; Protocol PRN Reason: Hypoglycemia Protocol Vancomycin HCl (Vancomycin 1gm In Normal Saline Addvantage) 1 gm in 250 mls @ 166.667 mls/hr IV STAT [facility] PRN Reason: Protocol Last Admin: 05/19/18 13:27 Dose: 166.667 mls/hr Dextrose (Dextrose 5% In Water 1000 Ml) 1,000 mls @ 0 mls/hr IV .Q0M PRN; Protocol; Per Protocol PRN Reason: Hypoglycemia Protocol Fluconazole (Diflucan Iv 200 Mg/100 Ml Ns) 100 mls @ 100 mls/hr IVPB DAILY [facility] PRN Reason: Protocol Last Admin: 05/21/18 09:51 Dose: 100 mls/hr Ciprofloxacin (Cipro 400mg/200ml Dsw) 400 mg in 200 mls @ 133 mls/hr IVPB Q12H [facility] PRN Reason: Protocol Last Admin: 05/22/18 02:30 Dose: 133 mls/hr Insulin Aspart (Novolog) 0 unit SC ACHS [facility] PRN Reason: Protocol Last Admin: 05/21/18 22:25 Dose: Not Given Lisinopril (Zestril) 5 mg PO DAILY [facility] Last Admin: 05/21/18 09:49 Dose: 5 mg Rosuvastatin Calcium (Crestor) 5 mg PO DIN [facility] Last Admin: 05/19/18 18:14 Dose: 5 mg Saccharomyces Boulardii (Florastor) 250 mg PO BID [facility] Last Admin: 05/21/18 17:16 Dose: 250 mg - Labs Labs: 05/22/18 06:42 05/22/18 06:42 - Additional Findings Additional findings: - Constitutional Appears: Non-toxic, No Acute Distress - Head Exam Head Exam: ATRAUMATIC, NORMOCEPHALIC - Eye Exam Eye Exam: EOMI, Normal appearance - Neck Exam Neck Exam: absent: Lymphadenopathy - Respiratory Exam Respiratory Exam: Clear to Ausculation Bilateral, NORMAL BREATHING PATTERN. absent: Rales, Rhonchi - Cardiovascular Exam Cardiovascular Exam: REGULAR RHYTHM, +S1, +S2. absent: Murmur - GI/Abdominal Exam GI & Abdominal Exam: Soft, Normal Bowel Sounds. absent: Distended, Guarding, Tenderness - Exam External exam: Erythema, Lesions. absent: Swelling Additional comments: Labia majora with cellulitic changes with right labia majora more indurated than left with improvement since the day prior. Prominent right inguinal lymph nodes. Inner gluteal cleft with bilateral erythema, bullae that are non-tender to palpation. Improved from the day prior. Sacral cleft and left buttock: hyperpigmented scaley macular plaques that continue down towards the medial thigh. Erythema found in pubic and suprapubic area, non-tender to palpation, indurated , nonfluctation. - Extremities Exam Additional comments: peripheral pulses palpable bilaterally (radial, PT) - Back Exam Back Exam: absent: CVA tenderness (L), CVA tenderness (R) - Neurological Exam Neurological Exam: Alert, Awake, Oriented x3 - Psychiatric Exam Psychiatric exam: Normal Affect, Normal Mood Assessment and Plan - Assessment and Plan (Free Text) Assessment: Assessment: 72 year old female with past medical history of diabetes mellitus, type 2, hypertension, lipid disorder, Rheumatoid Arthritis, admitted for genitourinary rash: cellulitis vs. fungal. Plan: Right Groin Cellulitis, fungal rash, rule out abscess - SIRS Criteria met on admission: fever T-qea=725, Tachycardia, leukopenia - Patient afebrile at time of evaluation - Lactic acid=1.8 on admission - Blood cultures prelim: no growth x 48 hours, pending gram stain - Wound culture: coagulase neg staphylococcus - Urine cultures: klebsiella pneumoniae - Benadryl 25mg PO Q8 PRN - Zosyn 3.375g IVPB q8 (05/19/18-05/21/18, active 3 days) - Continue Vancomycin 1g IVPB q12H (active since 05/19/18) - Continue Diflucan 200mg IVPB Q24H (active since 05/19/18) - Continue Ciprofloxacin 400mg IVPB Q12H (active since 05/21/18) - Continue Clotrimin cream top BID - Risk Factors: diabetes; immunocompromised secondary to steroids for RA - CT abd/pelvis PO and IV contrast impression per radiology report: Limited cellulitis affects suprapubic dermis and local subcutaneous fat as well as the dermis related to the gluteal fold with mild and superior segment and local subcutaneous fat as well. No abscess or emphysema soft tissue changes related. - Infectious Disease (Dr. Linn) consulted, recommendations appreciated - General surgery (Dr. Collins) consulted, recommendations appreciated: Warm compress application for 20 minutes TID - Gynecology consulted: Dr. Zepeda, recommendations appreciated - Evaluated by Dr. Carpenter (05/21) - not [employer]IGATOR issue, will sign off - Continue Florastor 250mg PO BID - Tylenol 650mg PO Q6H for severe pain and/or T>100.4F - Continue NS 50cc/hr - Continue to monitor with serial exams Hypokalemia, - K=3.5 today (3.5 on admission) - Magnesium=1.7 (05/20) - Continue to monitor with AM labs, and replete as necessary Urinary Tract Infection - Blood cultures: no growth x 48 hours, pending gram stain - Urinalysis 05/19: protein 1+, blood 1+, Leuk Est 3+, WBC 31 H, Bacteria + - Urine culture: klebsiella pneumoniae - Antibiotics as listed above Abnormal EKG on admission, resolved - Initial EKG (05/19): Flipped P waves in Lead V1 - Repeat EKG today: Normal sinus rhythm Diabetes Mellitus, type 2 - Hemoglobin A1C = 7.2 - Continue Novolog ISS sc (low) - Continue to hold Metformin - Hypoglycemic protocol History of Lipid Disorder - Lipid Panel Results: [id number], HDL=29, LDL=66, Total Cholesterol= 128 - Continue equivalent of home-med (Atorvastatin 10mg POqHS) History of Hypertension, stable - BP= 139/85 - Monitor vital signs - Gentle IV hydration History of Rheumatoid Arthritis - Hold home meds during admission (Methylprednisolone 4mg QD, Leflunamide 20mg QD, Xeljanz 11mg QD) Leukopenia likely due to patient being on home steroids - WBC=3.1, down from 4.6 on 05/19 - HIV 1/2 Abs pending results - Discontinue home steroids for RA - Continue to monitor Thrombocytopenia, Mild - Platelets= 99, down from 108 on 05/21 - Hold chemical anticoagulation given thrombocytopenia - No noted ecchymoses and/or petechiae on physical exam History of Osteoporosis - Hold home med during admission (Risendronate 150mg Monthly) PPx: - SCDs - ASA 81mg PO daily - Chemical anticoagulation hold given mild thrombocytopenia - Full code - On gentle IV hydration Patient seen and evaluated with and case discussed in detail with Attending Physician, Dr. Janie Dalton PGY-1
[2018-05-22] MEDS: (Novolog) Insulin Aspart, Recombinant 100 u/ml 10 ml vial SC SCH ×4 (08:19→21:30)
[2018-05-22] MEDS: Saccharomyces Boulardi 250 mg Cap PO SCH ×2 (09:59→17:49)
[2018-05-22] MEDS ORDERED: Pneumococcal 23-Valent Vaccine IM ONE (10:00)
[2018-05-22] MEDS: Fluconazole IV 200mg/100 ml NS 100 ML IVPB SCH (10:00)
[2018-05-22] MEDS: Clotrimazole 1% Cream(30 gm) TOP SCH ×2 (10:01→18:00)
--- NOTE | 2018-05-22 13:31 | CP.PCM.PN ---
Subjective - Date & Time of Evaluation Date of Evaluation: 05/22/18 Time of Evaluation: 07:25 - Subjective Subjective: PGY-1 general surgery note for Dr. Collins service Patient is seen and examined at bedside. Patient complain of itchiness in vaginal area last night that did not let her sleep. Patient denies any fevers or chills, patient is tolerating diet. Objective - Vital Signs/Intake and Output Vital Signs (last 24 hours): Temp Pulse Resp BP Pulse Ox 99.1 F 69 20 149/77 96 05/22/18 08:00 05/22/18 08:00 05/22/18 08:00 05/22/18 09:59 05/22/18 08:00 Intake and Output: 05/22/18 05/22/18 06:59 18:59 Intake Total 700 Output Total 400 Balance 300 - Medications Medications: Current Medications Acetaminophen (Tylenol 325mg Tab) 650 mg PO Q6 PRN PRN Reason: Fever >100.4 F Last Admin: 05/22/18 00:30 Dose: 650 mg Carvedilol (Coreg) 25 mg PO DAILY [facility] Last Admin: 05/22/18 09:59 Dose: 25 mg Clotrimazole (Lotrimin 1%) 1 gm TOP BID [facility] Last Admin: 05/22/18 10:01 Dose: 1 gm Dextrose (Dextrose 50% Inj) 50 ml IVP ONCE PRN PRN Reason: Hypoglycemia Dextrose (Dextrose 50% Inj) 0 ml IV STAT PRN; Protocol PRN Reason: Hypoglycemia Protocol Dextrose (Glutose 15) 0 gm PO ONCE PRN; Protocol PRN Reason: Hypoglycemia Protocol Glucagon (Glucagen Diagnostic Kit) 0 mg IM STAT PRN; Protocol PRN Reason: Hypoglycemia Protocol Dextrose (Dextrose 5% In Water 1000 Ml) 1,000 mls @ 0 mls/hr IV .Q0M PRN; Protocol; Per Protocol PRN Reason: Hypoglycemia Protocol Fluconazole (Diflucan Iv 200 Mg/100 Ml Ns) 100 mls @ 100 mls/hr IVPB DAILY [facility] PRN Reason: Protocol Last Admin: 05/22/18 10:00 Dose: 100 mls/hr Ciprofloxacin (Cipro 400mg/200ml Dsw) 400 mg in 200 mls @ 133 mls/hr IVPB Q12H [facility] PRN Reason: Protocol Last Admin: 08/29/18 02:30 Dose: 133 mls/hr Insulin Aspart (Novolog) 0 unit SC ACHS [facility] PRN Reason: Protocol Last Admin: 05/22/18 12:30 Dose: 1 unit Lisinopril (Zestril) 5 mg PO DAILY [facility] Last Admin: 05/22/18 10:02 Dose: 5 mg Rosuvastatin Calcium (Crestor) 5 mg PO DIN [facility] Last Admin: 05/19/18 18:14 Dose: 5 mg Saccharomyces Boulardii (Florastor) 250 mg PO BID [facility] Last Admin: 05/22/18 09:59 Dose: 250 mg - Labs Labs: 05/22/18 06:42 05/22/18 06:42 - Constitutional Appears: Non-toxic, No Acute Distress - Head Exam Head Exam: ATRAUMATIC, NORMAL INSPECTION, NORMOCEPHALIC - Eye Exam Eye Exam: EOMI, Normal appearance - ENT Exam ENT Exam: Mucous Membranes Moist, Normal Exam - Neck Exam Neck Exam: Full ROM, Normal Inspection - Respiratory Exam Respiratory Exam: NORMAL BREATHING PATTERN. absent: Accessory Muscle Use, Respiratory Distress - GI/Abdominal Exam GI & Abdominal Exam: Soft - Exam Additional comments: Cellulitis R groin involving labia majora, inner gluteus. Pubic and suprapubic area with improving erythema. Excoriations, increasing in size noted, on pubic area, nontender to palpation, indurated, nonfluctating, nonodorous, Non purulent and nonbloody. - Neurological Exam Neurological Exam: Alert, Awake, Oriented x3 - Psychiatric Exam Psychiatric exam: Normal Affect, Normal Mood Assessment and Plan - Assessment and Plan (Free Text) Assessment: 72 yo F with Rt groin cellulitis Plan: -local wound management recommended - Continue to follow ID recs - monitor vitals and F/U blood work - As per [employer] - Likely fungal in etiology, continue Diflucan 200mg IV daily, clomitrazole 1% cream topical BID, management as per medicine, consider biopsy of lesion if no improvement at outpatient [facility] office. - follow management recs as per medicine - no indication for surgery at this time Plan discussed with Dr Karina Hill PGY-1
--- NOTE | 2018-05-22 14:18 | CARD ---
APPROVED REPORT Date of service: 05/20/2018 EKG Measurement Heart [id number] <Conclusion> Normal sinus rhythm Normal ECG
[2018-05-22] MEDS ORDERED: Potassium Chloride 20 mEq ER Tab PO SCH (15:45)
[2018-05-22] MEDS: Vancomycin 1 gm/NS 200 ml 1 GM/200 ML BAG IVPB SCH (17:48)
[2018-05-23] MEDS: Ciprofloxacin 400mg/200ml D5W 400 MG/200 ML BAG IVPB SCH ×2 (01:30→14:03)
[2018-05-23] MEDS: Vancomycin 1 gm/NS 200 ml 1 GM/200 ML BAG IVPB SCH ×2 (04:10→16:33)
--- NOTE | 2018-05-23 06:25 | CP.PCM.PN ---
<Rj Dalton - Last Filed: 05/23/18 16:34> Subjective - Date & Time of Evaluation Date of Evaluation: 05/23/18 Time of Evaluation: 06:21 - Subjective Subjective: Rj Dalton PGY-1 -- Medicine Progress Note for Dr. Mccormack Patient was seen and examined at bedside this morning. Patient says that her itching has persisted despite the benadryl. Patient continues to admit to bouts of diarrhea in the last 24 hours. Patient has no acute complaints. Denies chest pain, shortness of breath, abdominal pain, urinary frequency. Is still complaining of burning on urination which resolves after a few minutes. Objective - Vital Signs/Intake and Output Vital Signs (last 24 hours): Temp Pulse Resp BP Pulse Ox 98.6 F 78 20 120/72 94 L 05/23/18 00:00 05/23/18 00:00 05/23/18 00:00 05/23/18 00:00 05/23/18 00:00 Intake and Output: 05/22/18 05/23/18 18:59 06:59 Intake Total 300 1140 Output Total 600 Balance 300 540 - Medications Medications: Current Medications Acetaminophen (Tylenol 325mg Tab) 650 mg PO Q6 PRN PRN Reason: Fever >100.4 F Last Admin: 05/22/18 00:30 Dose: 650 mg Aspirin (Aspirin Chewable) 81 mg PO DAILY [facility] Last Admin: 05/22/18 16:08 Dose: 81 mg Carvedilol (Coreg) 25 mg PO DAILY [facility] Last Admin: 05/22/18 09:59 Dose: 25 mg Clotrimazole (Lotrimin 1%) 1 gm TOP BID [facility] Last Admin: 05/22/18 18:00 Dose: Not Given Dextrose (Dextrose 50% Inj) 50 ml IVP ONCE PRN PRN Reason: Hypoglycemia Dextrose (Dextrose 50% Inj) 0 ml IV STAT PRN; Protocol PRN Reason: Hypoglycemia Protocol Dextrose (Glutose 15) 0 gm PO ONCE PRN; Protocol PRN Reason: Hypoglycemia Protocol Diphenhydramine HCl (Benadryl) 25 mg PO Q8 PRN PRN Reason: Itching / Pruritus Last Admin: 05/23/18 05:03 Dose: 25 mg Glucagon (Glucagen Diagnostic Kit) 0 mg IM STAT PRN; Protocol PRN Reason: Hypoglycemia Protocol Fluconazole (Diflucan Iv 200 Mg/100 Ml Ns) 100 mls @ 100 mls/hr IVPB DAILY [facility] PRN Reason: Protocol Last Admin: 05/22/18 10:00 Dose: 100 mls/hr Ciprofloxacin (Cipro 400mg/200ml Dsw) 400 mg in 200 mls @ 133 mls/hr IVPB Q12H [facility] PRN Reason: Protocol Last Admin: 05/23/18 01:30 Dose: 133 mls/hr Vancomycin/Sodium Chloride (Vancomycin 1 Gm/Ns 200 Ml) 1 gm in 200 mls @ 166.6 mls/hr IVPB Q12H [facility] PRN Reason: Protocol Stop: 05/27/18 17:01 Last Admin: 05/23/18 04:10 Dose: 166.6 mls/hr Insulin Aspart (Novolog) 0 unit SC ACHS [facility] PRN Reason: Protocol Last Admin: 05/22/18 21:30 Dose: Not Given Lisinopril (Zestril) 5 mg PO DAILY [facility] Last Admin: 05/22/18 10:02 Dose: 5 mg Rosuvastatin Calcium (Crestor) 5 mg PO DIN [facility] Last Admin: 05/19/18 18:14 Dose: 5 mg Saccharomyces Boulardii (Florastor) 250 mg PO BID [facility] Last Admin: 05/22/18 17:49 Dose: 250 mg - Labs Labs: 05/22/18 06:42 05/22/18 06:42 - Additional Findings Additional findings: - Additional Findings Additional findings: - Constitutional Appears: Non-toxic, No Acute Distress - Head Exam Head Exam: ATRAUMATIC, NORMOCEPHALIC - Eye Exam Eye Exam: EOMI, Normal appearance - Neck Exam Neck Exam: absent: Lymphadenopathy - Respiratory Exam Respiratory Exam: Clear to Ausculation Bilateral, NORMAL BREATHING PATTERN. absent: Rales, Rhonchi - Cardiovascular Exam Cardiovascular Exam: REGULAR RHYTHM, +S1, +S2. absent: Murmur - GI/Abdominal Exam GI & Abdominal Exam: Soft, Normal Bowel Sounds. absent: Distended, Guarding, Tenderness - Exam External exam: Erythema, Lesions. absent: Swelling Additional comments: Labia majora with cellulitic changes with right labia majora more indurated than left with improvement since the day prior. Inner gluteal cleft with bilateral erythema, bullae that are non-tender to palpation. Improved from the day prior. Sacral cleft and left buttock: hyperpigmented scaley macular plaques that continue down towards the medial thigh. Erythematous patches found in pubic and suprapubic area, non-tender to palpation , indurated, nonfluctation. - Extremities Exam Additional comments: peripheral pulses palpable bilaterally (radial, PT) - Back Exam Back Exam: absent: CVA tenderness (L), CVA tenderness (R) - Neurological Exam Neurological Exam: Alert, Awake, Oriented x3 - Psychiatric Exam Psychiatric exam: Normal Affect, Normal Mood Assessment and Plan - Assessment and Plan (Free Text) Assessment: Assessment: 72 year old female with past medical history of diabetes mellitus, type 2, hypertension, lipid disorder, Rheumatoid Arthritis, admitted for genitourinary rash: cellulitis vs. fungal. Right Groin Cellulitis, fungal rash, rule out abscess - SIRS Criteria met on admission: fever [id number], Tachycardia, leukopenia - Patient afebrile at time of evaluation - Lactic acid=1.8 on admission - Blood cultures prelim: no growth x 48 hours, pending gram stain - Wound culture: coagulase neg staphylococcus - Urine cultures: klebsiella pneumoniae - Benadryl 25mg PO Q8 PRN - Zosyn 3.375g IVPB q8 (05/19/18-05/21/18, active 3 days) - Continue Vancomycin 1g IVPB q12H (active since 05/19/18) - Continue Diflucan 200mg IVPB Q24H (active since 05/19/18) - Continue Ciprofloxacin 400mg IVPB Q12H (active since 05/21/18) - ID consulted about the case, recommendations appreciated. - Patient will be discharged on oral antibiotics (difulcan and keflex) - Patient does not need to be discharged on IV antibiotics - Continue Clotrimin cream top BID - Risk Factors: diabetes; immunocompromised secondary to steroids for RA - CT abd/pelvis PO and IV contrast impression per radiology report: Limited cellulitis affects suprapubic dermis and local subcutaneous fat as well as the dermis related to the gluteal fold with mild and superior segment and local subcutaneous fat as well. No abscess or emphysema soft tissue changes related. - Infectious Disease (Dr. Linn) consulted, recommendations appreciated - General surgery (Dr. Collins) consulted, recommendations appreciated: Warm compress application for 20 minutes TID - Gynecology consulted: Dr. Zepeda, recommendations appreciated - Evaluated by Dr. Carpenter (05/21) - not AIRFIELD MANAGER issue, will sign off - Continue Florastor 250mg PO BID - Tylenol 650mg PO Q6H for severe pain and/or T>100.4F - Continue NS 50cc/hr - Continue to monitor with serial exams Hypokalemia, improved - K= 3.7 today - Magnesium=1.7 (05/20) replete as necessary - Continue to monitor with AM labs, and replete as necessary Urinary Tract Infection - Blood cultures: no growth x 48 hours, pending gram stain - Urinalysis 05/19: protein 1+, blood 1+, Leuk Est 3+, WBC 31 H, Bacteria + - Urine culture: klebsiella pneumoniae - Repeat Urine culture: pending - ID consulted about the case, recommendations appreciated. - Per ID, patient can be discharged on oral antibiotics (difulcan and keflex) Abnormal EKG on admission, resolved - Initial EKG (05/19): Flipped P waves in Lead V1 - Repeat EKG today: Normal sinus rhythm Diabetes Mellitus, type 2 - Hemoglobin A1C = 7.2 - Continue Novolog ISS sc (low) - Continue to hold Metformin - Hypoglycemic protocol History of Lipid Disorder - Lipid Panel Results: [id number]=322, HDL=29, LDL=66, Total Cholesterol= 128 - Continue equivalent of home-med (Atorvastatin 10mg POqHS) History of Hypertension, stable - VA=120/69 - Monitor vital signs - Gentle IV hydration History of Rheumatoid Arthritis - Hold home meds during admission (Methylprednisolone 4mg QD, Leflunamide 20mg QD, Xeljanz 11mg QD) Leukopenia likely due to patient being on home steroids, stable - WBC=3.4 down from 4.6 on 05/19, but stable for last 3 days. - HIV 1/2 Abs negative - Discontinue home steroids for RA - Continue to monitor Thrombocytopenia, Mild - Platelets=98 (99 on 05/22) - Hold chemical anticoagulation given thrombocytopenia - No noted ecchymoses and/or petechiae on physical exam History of Osteoporosis - Hold home med during admission (Risendronate 150mg Monthly) PPx: - SCDs - ASA 81mg PO daily - Chemical anticoagulation hold given mild thrombocytopenia - Full code - On gentle IV hydration Patient seen and evaluated with and case discussed in detail with Attending Physician, Dr. Easton Dalton PGY-1 <Yazmin Mccormack V - Last Filed: 05/23/18 22:24> Objective - Vital Signs/Intake and Output Vital Signs (last 24 hours): Temp Pulse Resp BP Pulse Ox 98.4 F 80 20 140/68 96 05/23/18 16:08 05/23/18 16:08 05/23/18 16:08 05/23/18 16:08 05/23/18 16:08 Intake and Output: 05/23/18 05/24/18 18:59 06:59 Intake Total 780 Balance 780 - Medications Medications: Current Medications Acetaminophen (Tylenol 325mg Tab) 650 mg PO Q6 PRN PRN Reason: Fever >100.4 F Last Admin: 05/22/18 00:30 Dose: 650 mg Aspirin (Aspirin Chewable) 81 mg PO DAILY [facility] Last Admin: 05/23/18 10:28 Dose: 81 mg Carvedilol (Coreg) 25 mg PO DAILY [facility] Last Admin: 05/23/18 10:31 Dose: 25 mg Clotrimazole (Lotrimin 1%) 1 gm TOP BID [facility] Last Admin: 05/23/18 17:01 Dose: 1 gm Dextrose (Dextrose 50% Inj) 50 ml IVP ONCE PRN PRN Reason: Hypoglycemia Dextrose (Dextrose 50% Inj) 0 ml IV STAT PRN; Protocol PRN Reason: Hypoglycemia Protocol Dextrose (Glutose 15) 0 gm PO ONCE PRN; Protocol PRN Reason: Hypoglycemia Protocol Diphenhydramine HCl (Benadryl) 25 mg IVP Q8H PRN PRN Reason: Itching / Pruritus Glucagon (Glucagen Diagnostic Kit) 0 mg IM STAT PRN; Protocol PRN Reason: Hypoglycemia Protocol Hydrocortisone (Cortizone 1% Cream) 1 gm TOP BID [facility] Fluconazole (Diflucan Iv 200 Mg/100 Ml Ns) 100 mls @ 100 mls/hr IVPB DAILY [facility] PRN Reason: Protocol Last Admin: 05/23/18 10:28 Dose: 100 mls/hr Ciprofloxacin (Cipro 400mg/200ml Dsw) 400 mg in 200 mls @ 133 mls/hr IVPB Q12H [facility] PRN Reason: Protocol Last Admin: 05/23/18 14:03 Dose: 133 mls/hr Vancomycin/Sodium Chloride (Vancomycin 1 Gm/Ns 200 Ml) 1 gm in 200 mls @ 166.6 mls/hr IVPB Q12H [facility] PRN Reason: Protocol Stop: 05/27/18 17:01 Last Admin: 05/23/18 16:33 Dose: 166.6 mls/hr Insulin Aspart (Novolog) 0 unit SC ACHS [facility] PRN Reason: Protocol Last Admin: 05/23/18 16:40 Dose: Not Given Lisinopril (Zestril) 5 mg PO DAILY [facility] Last Admin: 05/23/18 10:28 Dose: 5 mg Potassium Phos/Sodium Phos (Neutra-Phos) 1 pkt PO TID [facility] Stop: 05/24/18 14:01 Last Admin: 05/23/18 17:01 Dose: 1 pkt Rosuvastatin Calcium (Crestor) 5 mg PO DIN [facility] Last Admin: 05/19/18 18:14 Dose: 5 mg Saccharomyces Boulardii (Florastor) 250 mg PO BID [facility] Last Admin: 05/23/18 17:01 Dose: 250 mg Vitamin A (Vitamin A & D Oint Ud Foilpak) 2 ea TOP Q8 PRN PRN Reason: Dry buttocks area - Labs Labs: 05/23/18 06:35 05/23/18 06:35 Attending/Attestation - Attestation I have personally seen and examined this patient.: Yes I have fully participated in the care of the patient.: Yes I have reviewed all pertinent clinical information, including history, physical exam and plan: Yes Notes (Text): patient seen, examined and case discussed with day-time resident. Patient seen at bedside. patient's main complaint is itchiness over the groin. patient started on Benadryl PO; will switch to IV to see itchiness is relieved. Patient is on IV abx and IV antifungal to cover for rash. Patient will need to f/u outpatient with urologist for workup for urinary incontinence. pending repeat UA and urine culture. Discussed with ID, likely patient can be discharge on PO Diflucan and PO keflex tomorrow. Assessment/Plan 1) Right Groin Cellulitis, fungal rash, rule out abscess Assessment/Plan * SIRS Criteria met on admission: fever T-ezc=508, Tachycardia, leukopenia * Risk Factors: diabetes; immunocompromised secondary to steroids for RA * Infectious Disease (Dr. Linn) consulted, recommendations appreciated * General surgery (Dr. Collins) consulted, recommendations appreciated: Warm compress application for 20 minutes TID * Gynecology consulted: Dr. Zepeda, recommendations appreciated * Evaluated by Dr. Carpenter (05/21) - not AIRFIELD MANAGER issue, will sign off * F/u outpatient state auditor if labia lesion persist for outpatient biopsy * Patient afebrile at time of evaluation * Lactic acid=1.8 on admission * Blood cultures prelim: no growth for 4 days X2 * Wound culture (05/19/18): coagulase neg staphylococcus * Urine culture (05/19/18): klebsiella pneumoniae * Benadryl 25mg IV Q8H PRN itchiness * D/C Zosyn 3.375g IVPB q8 (05/19/18-05/21/18, active 3 days) * Continue Ciprofloxacin 400mg IVPB Q12H (active since 05/21/18) * Continue Vancomycin 1g IVPB q12H (active since 05/19/18) * Continue Diflucan 200mg IVPB Q24H (active since 05/19/18) * Continue Clotrimin cream top BID * Continue Florastor 250mg PO BID * CT abd/pelvis PO and IV contrast impression per radiology report: Limited cellulitis affects suprapubic dermis and local subcutaneous fat as well as the dermis related to the gluteal fold with mild and superior segment and local subcutaneous fat as well. No abscess or emphysema soft tissue changes related. 2) Hypokalemia, improved Assessment/Plan * K= 3.7 today * Magnesium=1.7 (05/20) replete as necessary 3) Urinary Tract Infection Assessment/Plan * Urine culture: klebsiella pneumoniae * Repeat Urine culture: pending * ID consulted about the case, recommendations appreciated. * Per ID, patient can be discharged on oral antibiotics (difulcan and keflex) 4) Abnormal EKG on admission, resolved 5) Diabetes Mellitus, type 2 Assessment/Plan * Hemoglobin A1C = 7.2 * Continue Novolog ISS sc (low) * Continue to hold Metformin * Hypoglycemic protocol 6) History of Lipid Disorder Assessment/Plan * Lipid Panel Results: Fazlcairsgqfb=406, HDL=29, LDL=66, Total Iwozlfjxiwc=055 * Continue equivalent of home-med (Atorvastatin 10mg POqHS) Crestor while in hospital 7) History of Hypertension, stable Assessment/Plan * Coreg 25mg PO daily * Aspirin 81mg PO daily * Lisinopril 5mg PO daily 8) History of Rheumatoid Arthritis - Hold home meds during admission (Methylprednisolone 4mg QD, Leflunamide 20mg QD, Xeljanz 11mg QD) 9) Leukopenia Assessment/Plan * WBC=3.4 ANC: >1.6 * HIV 1/2 Abs negative * Discontinue home steroids for RA on admission * Continue to monitor 10) Thrombocytopenia, Mild Assessment/Plan * Platelets=98 (99 on 05/22) * Hold chemical anticoagulation given thrombocytopenia * No noted ecchymoses and/or petechiae on physical exam * HIV negative * hepatitis panel ordered * Abdominal US to order 11) History of Osteoporosis Assessment/Plan * Hold home med during admission (Risendronate 150mg Monthly) 12) PPx: * SCDs * ASA 81mg PO daily * Chemical anticoagulation hold given mild thrombocytopenia * Full code * On gentle IV hydration Disposition: patient is for possible discharge tomorrow on PO antibiotics and antifungal. Order for hepatitis panel, abdominal US, heme-oncology consult
[2018-05-23 06:46] LABS: BASO % 0.8 % (0.0-2.0); EOS # 0.1 K/uL (0.0-0.7); EOS % 2.6 % (0.0-4.0); HEMOGLOBIN 12.3 g/dL (11.0-16.0); LYMPH # 0.8 K/uL (1.0-4.3); LYMPH % 23.8 % (20.0-40.0); MEAN CELL VOLUME 92.6 fL (81.0-99.0); MEAN CORPUSCULAR HEMOGLOBIN 32.2 pg (27.0-31.0); MEAN CORPUSCULAR HGB CONC 34.7 g/dL (33.0-37.0); MEAN PLATELET VOLUME 8.8 fL (7.2-11.7); MONO # 0.4 K/uL (0.0-0.8); MONO % 10.5 % (0.0-10.0); NEUT # 2.1 K/uL (1.8-7.0); NEUT % 62.3 % (50.0-75.0); NRBC % 0.1 % (0.0-2.0); RBC 3.81 Mil/uL (3.80-5.20); RED CELL DISTRIBUTION WIDTH 13.5 % (11.5-14.5); WHITE BLOOD COUNT 3.4 K/uL (4.8-10.8)
[2018-05-23 07:23] LABS: ALB/GLOB RATIO 1.2 (1.0-2.1)
[2018-05-23 07:32] LABS: ALBUMIN 3.2 g/dL (3.5-5.0); ALT/SGPT 31 U/L (9-52); AST/SGOT 20 U/L (14-36); BLOOD UREA NITROGEN 6 mg/dL (7-17); CALCIUM 8.1 mg/dl (8.6-10.4); GFR NON-AFRICAN AMERICAN > 60
--- NOTE | 2018-05-23 07:53 | CP.PCM.PN ---
Subjective - Date & Time of Evaluation Date of Evaluation: 05/23/18 Time of Evaluation: 06:35 - Subjective Subjective: Patient seen and examined. No acute events over night. Afebrile. Patient complains of pruritus along affected groin regions. No purulent drainage noted. No fluctuant areas along sking noted. Cellulitis grossly improving. Objective - Vital Signs/Intake and Output Vital Signs (last 24 hours): Temp Pulse Resp BP Pulse Ox 98.6 F 78 20 120/72 94 L 05/23/18 00:00 05/23/18 00:00 05/23/18 00:00 05/23/18 00:00 05/23/18 00:00 Intake and Output: 05/23/18 05/23/18 06:59 18:59 Intake Total 1140 Output Total 600 Balance 540 - Medications Medications: Current Medications Acetaminophen (Tylenol 325mg Tab) 650 mg PO Q6 PRN PRN Reason: Fever >100.4 F Last Admin: 05/22/18 00:30 Dose: 650 mg Aspirin (Aspirin Chewable) 81 mg PO DAILY [facility] Last Admin: 05/22/18 16:08 Dose: 81 mg Carvedilol (Coreg) 25 mg PO DAILY [facility] Last Admin: 05/22/18 09:59 Dose: 25 mg Clotrimazole (Lotrimin 1%) 1 gm TOP BID [facility] Last Admin: 05/22/18 18:00 Dose: Not Given Dextrose (Dextrose 50% Inj) 50 ml IVP ONCE PRN PRN Reason: Hypoglycemia Dextrose (Dextrose 50% Inj) 0 ml IV STAT PRN; Protocol PRN Reason: Hypoglycemia Protocol Dextrose (Glutose 15) 0 gm PO ONCE PRN; Protocol PRN Reason: Hypoglycemia Protocol Diphenhydramine HCl (Benadryl) 25 mg PO Q8 PRN PRN Reason: Itching / Pruritus Last Admin: 05/23/18 05:03 Dose: 25 mg Glucagon (Glucagen Diagnostic Kit) 0 mg IM STAT PRN; Protocol PRN Reason: Hypoglycemia Protocol Fluconazole (Diflucan Iv 200 Mg/100 Ml Ns) 100 mls @ 100 mls/hr IVPB DAILY [facility] PRN Reason: Protocol Last Admin: 05/22/18 10:00 Dose: 100 mls/hr Ciprofloxacin (Cipro 400mg/200ml Dsw) 400 mg in 200 mls @ 133 mls/hr IVPB Q12H [facility] PRN Reason: Protocol Last Admin: 05/23/18 01:30 Dose: 133 mls/hr Vancomycin/Sodium Chloride (Vancomycin 1 Gm/Ns 200 Ml) 1 gm in 200 mls @ 166.6 mls/hr IVPB Q12H [facility] PRN Reason: Protocol Stop: 05/27/18 17:01 Last Admin: 05/23/18 04:10 Dose: 166.6 mls/hr Insulin Aspart (Novolog) 0 unit SC ACHS [facility] PRN Reason: Protocol Last Admin: 05/22/18 21:30 Dose: Not Given Lisinopril (Zestril) 5 mg PO DAILY [facility] Last Admin: 05/22/18 10:02 Dose: 5 mg Rosuvastatin Calcium (Crestor) 5 mg PO DIN [facility] Last Admin: 05/19/18 18:14 Dose: 5 mg Saccharomyces Boulardii (Florastor) 250 mg PO BID [facility] Last Admin: 05/22/18 17:49 Dose: 250 mg - Labs Labs: 05/23/18 06:35 05/23/18 06:35 - Constitutional Appears: No Acute Distress - Head Exam Head Exam: NORMOCEPHALIC - Eye Exam Eye Exam: Normal appearance - ENT Exam ENT Exam: Mucous Membranes Moist - Respiratory Exam Respiratory Exam: NORMAL BREATHING PATTERN - Cardiovascular Exam Cardiovascular Exam: +S1, +S2 - GI/Abdominal Exam GI & Abdominal Exam: Soft - Neurological Exam Neurological Exam: Alert, Awake, Oriented x3 - Psychiatric Exam Psychiatric exam: Normal Mood - Skin Additional comments: Cellulitis improving No drainable collection noted Excoriations along pubic symphisis area and right middle thigh Assessment and Plan - Assessment and Plan (Free Text) Assessment: 72 yo F with groin and medial thigh cellulitis Plan: -c/w local wound care - C/w ABx per ID - 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 - follow management recs as per medicine - No draibale collection noted. No active purulent drainage noted. no indication for surgery at this time D/w Dr. Karina Bowling PGY3
[2018-05-23] MEDS: (Novolog) Insulin Aspart, Recombinant 100 u/ml 10 ml vial SC SCH ×4 (08:30→23:00)
[2018-05-23] MEDS: Fluconazole IV 200mg/100 ml NS 100 ML IVPB SCH (10:28)
[2018-05-23] MEDS: Clotrimazole 1% Cream(30 gm) TOP SCH ×2 (10:28→17:01)
[2018-05-23] MEDS: Saccharomyces Boulardi 250 mg Cap PO SCH ×2 (10:28→17:01)
[2018-05-23] MEDS ORDERED: Vitamins A & D Oint UD Foilpak TOP PRN (11:34)
--- NOTE | 2018-05-23 13:14 | CP.PCM.PN ---
Subjective - Date & Time of Evaluation Date of Evaluation: 05/23/18 Time of Evaluation: 12:30 - Subjective Subjective: dictated Objective - Vital Signs/Intake and Output Vital Signs (last 24 hours): Temp Pulse Resp BP Pulse Ox 98.7 F 89 20 135/81 95 05/23/18 07:20 05/23/18 07:20 05/23/18 07:20 05/23/18 10:31 05/23/18 07:20 Intake and Output: 05/23/18 05/23/18 06:59 18:59 Intake Total 1140 Output Total 600 Balance 540 - Medications Medications: Current Medications Acetaminophen (Tylenol 325mg Tab) 650 mg PO Q6 PRN PRN Reason: Fever >100.4 F Last Admin: 05/22/18 00:30 Dose: 650 mg Aspirin (Aspirin Chewable) 81 mg PO DAILY [facility] Last Admin: 05/23/18 10:28 Dose: 81 mg Carvedilol (Coreg) 25 mg PO DAILY [facility] Last Admin: 05/23/18 10:31 Dose: 25 mg Clotrimazole (Lotrimin 1%) 1 gm TOP BID [facility] Last Admin: 05/23/18 10:28 Dose: 1 gm Dextrose (Dextrose 50% Inj) 50 ml IVP ONCE PRN PRN Reason: Hypoglycemia Dextrose (Dextrose 50% Inj) 0 ml IV STAT PRN; Protocol PRN Reason: Hypoglycemia Protocol Dextrose (Glutose 15) 0 gm PO ONCE PRN; Protocol PRN Reason: Hypoglycemia Protocol Diphenhydramine HCl (Benadryl) 25 mg PO Q8 PRN PRN Reason: Itching / Pruritus Last Admin: 05/23/18 05:03 Dose: 25 mg Glucagon (Glucagen Diagnostic Kit) 0 mg IM STAT PRN; Protocol PRN Reason: Hypoglycemia Protocol Fluconazole (Diflucan Iv 200 Mg/100 Ml Ns) 100 mls @ 100 mls/hr IVPB DAILY [facility] PRN Reason: Protocol Last Admin: 05/23/18 10:28 Dose: 100 mls/hr Ciprofloxacin (Cipro 400mg/200ml Dsw) 400 mg in 200 mls @ 133 mls/hr IVPB Q12H [facility] PRN Reason: Protocol Last Admin: 05/23/18 01:30 Dose: 133 mls/hr Vancomycin/Sodium Chloride (Vancomycin 1 Gm/Ns 200 Ml) 1 gm in 200 mls @ 166.6 mls/hr IVPB Q12H [facility] PRN Reason: Protocol Stop: 05/27/18 17:01 Last Admin: 05/23/18 04:10 Dose: 166.6 mls/hr Insulin Aspart (Novolog) 0 unit SC ACHS [facility] PRN Reason: Protocol Last Admin: 05/23/18 12:30 Dose: 1 unit Lisinopril (Zestril) 5 mg PO DAILY [facility] Last Admin: 05/23/18 10:28 Dose: 5 mg Potassium Phos/Sodium Phos (Neutra-Phos) 1 pkt PO TID [facility] Stop: 05/24/18 14:01 Rosuvastatin Calcium (Crestor) 5 mg PO DIN [facility] Last Admin: 05/19/18 18:14 Dose: 5 mg Saccharomyces Boulardii (Florastor) 250 mg PO BID [facility] Last Admin: 05/23/18 10:28 Dose: 250 mg Vitamin A (Vitamin A & D Oint Ud Foilpak) 2 ea TOP Q8 PRN PRN Reason: Dry buttocks area - Labs Labs: 05/23/18 06:35 05/23/18 06:35
[2018-05-23] MEDS: Potassium & Sodium Phosphate PO SCH ×2 (14:03→17:01)
[2018-05-23] MEDS: Hydrocortisone 1% Cream (30 GM) TOP SCH (19:15)
[2018-05-23] MEDS ORDERED: DiphenhydrAMINE 50 mg/ml Inj IVP PRN (22:10)
[2018-05-24] MEDS: Ciprofloxacin 400mg/200ml D5W 400 MG/200 ML BAG IVPB SCH ×2 (01:01→14:34)
--- NOTE | 2018-05-24 01:06 | PN ---
Copied To: Dimple Linn MD Attending MD: Dimple Linn MD DATE: 05/23/2018 INFECTIOUS DISEASE FOLLOWUP SUBJECTIVE: The patient is afebrile. She is feeling better. She still complains of some itching in the skin. OBJECTIVE: VITAL SIGNS: Temperature is 98.6, pulse 78, blood pressure 120/72, respirations are 20. HEENT: Head is atraumatic, normocephalic. NECK: Supple. LUNGS: Clear. HEART: S1, S2 regular. ABDOMEN: Soft, nontender. No guarding, no rigidity present in suprapubic area. SKIN: There is a necrotic cellulitic area but there is no drainage. It is dry, and she also had fungal rash which is improving at this time. EXTREMITIES: Have no edema. She does have a history of incontinence which may reoccur. White count is 3.4, hemoglobin 12.3, hematocrit 35.3, platelet count is 98, is low. She is pancytopenic. HIV test was done which was negative. Her cultures, urine was positive, and the wound culture had only coagulase-negative Staph, and it is very sensitive to Levaquin and Klebsiella, it was in the urine. Repeat culture has been ordered, is Cipro sensitive, and we have left her on Cipro, and she is on Cipro from . She has been on treatment from the time she came in, so she is like 4 days into treatment, so we will send her home with Cipro if she goes home tomorrow, so send her home with 5 days of Cipro and 7 days of Diflucan, and the patient should follow up with her primary, and she needs to be seen by urologist for incontinence as outpatient. Dimple Linn MD
[2018-05-24] MEDS: Vancomycin 1 gm/NS 200 ml 1 GM/200 ML BAG IVPB SCH (04:04)
[2018-05-24 07:30] LABS: ALB/GLOB RATIO 1.2 (1.0-2.1); ALBUMIN 3.3 g/dL (3.5-5.0); ALT/SGPT 31 U/L (9-52); AST/SGOT 26 U/L (14-36); BLOOD UREA NITROGEN 6 mg/dL (7-17); CALCIUM 8.1 mg/dl (8.6-10.4); GFR NON-AFRICAN AMERICAN > 60
[2018-05-24 07:47] LABS: HEPATITIS B SURFACE AG Negative (NEGATIVE)
[2018-05-24 07:52] LABS: HEPATITIS A IGM NEGATIVE (NEGATIVE)
[2018-05-24 08:05] LABS: HEPATITIS C ANTIBODY NEGATIVE (NEGATIVE)
[2018-05-24 08:08] VITALS: O2SAT 96
[2018-05-24] MEDS: (Novolog) Insulin Aspart, Recombinant 100 u/ml 10 ml vial SC SCH ×2 (08:17→12:30)
--- NOTE | 2018-05-24 08:19 | CP.PCM.PN ---
Subjective - Date & Time of Evaluation Date of Evaluation: 05/24/18 Time of Evaluation: 06:30 - Subjective Subjective: PGY-1 general surgery note for Dr. Collins service Patient is seen and examined at bedside. no acute events overnight reported. Patient states her pain and itchiness is much better and improving. Patient says the hydrocortisone cream given to her has helped her. Patient denies fevers , chills, nausea or vomiting. Objective - Vital Signs/Intake and Output Vital Signs (last 24 hours): Temp Pulse Resp BP Pulse Ox 98.4 F 83 20 112/71 96 05/24/18 08:07 05/24/18 08:07 05/24/18 08:07 05/24/18 08:07 05/24/18 08:07 Intake and Output: 05/24/18 05/24/18 06:59 18:59 Intake Total 860 Balance 860 - Medications Medications: Current Medications Acetaminophen (Tylenol 325mg Tab) 650 mg PO Q6 PRN PRN Reason: Fever >100.4 F Last Admin: 05/22/18 00:30 Dose: 650 mg Aspirin (Aspirin Chewable) 81 mg PO DAILY [facility] Last Admin: 05/23/18 10:28 Dose: 81 mg Carvedilol (Coreg) 25 mg PO DAILY [facility] Last Admin: 05/23/18 10:31 Dose: 25 mg Clotrimazole (Lotrimin 1%) 1 gm TOP BID [facility] Last Admin: 05/23/18 17:01 Dose: 1 gm Dextrose (Dextrose 50% Inj) 50 ml IVP ONCE PRN PRN Reason: Hypoglycemia Dextrose (Dextrose 50% Inj) 0 ml IV STAT PRN; Protocol PRN Reason: Hypoglycemia Protocol Dextrose (Glutose 15) 0 gm PO ONCE PRN; Protocol PRN Reason: Hypoglycemia Protocol Diphenhydramine HCl (Benadryl) 25 mg IVP Q8H PRN PRN Reason: Itching / Pruritus Glucagon (Glucagen Diagnostic Kit) 0 mg IM STAT PRN; Protocol PRN Reason: Hypoglycemia Protocol Hydrocortisone (Cortizone 1% Cream) 1 gm TOP BID [facility] Last Admin: 05/23/18 19:15 Dose: 1 gm Fluconazole (Diflucan Iv 200 Mg/100 Ml Ns) 100 mls @ 100 mls/hr IVPB DAILY [facility] PRN Reason: Protocol Last Admin: 05/23/18 10:28 Dose: 100 mls/hr Ciprofloxacin (Cipro 400mg/200ml Dsw) 400 mg in 200 mls @ 133 mls/hr IVPB Q12H [facility] PRN Reason: Protocol Last Admin: 05/24/18 01:01 Dose: 133 mls/hr Vancomycin/Sodium Chloride (Vancomycin 1 Gm/Ns 200 Ml) 1 gm in 200 mls @ 166.6 mls/hr IVPB Q12H [facility] PRN Reason: Protocol Stop: 05/27/18 17:01 Last Admin: 05/24/18 04:04 Dose: 166.6 mls/hr Insulin Aspart (Novolog) 0 unit SC ACHS [facility] PRN Reason: Protocol Last Admin: 05/23/18 23:00 Dose: Not Given Lisinopril (Zestril) 5 mg PO DAILY [facility] Last Admin: 05/23/18 10:28 Dose: 5 mg Potassium Phos/Sodium Phos (Neutra-Phos) 1 pkt PO TID [facility] Stop: 05/24/18 14:01 Last Admin: 05/23/18 17:01 Dose: 1 pkt Rosuvastatin Calcium (Crestor) 5 mg PO DIN [facility] Last Admin: 05/19/18 18:14 Dose: 5 mg Saccharomyces Boulardii (Florastor) 250 mg PO BID [facility] Last Admin: 05/23/18 17:01 Dose: 250 mg Vitamin A (Vitamin A & D Oint Ud Foilpak) 2 ea TOP Q8 PRN PRN Reason: Dry buttocks area - Labs Labs: 05/23/18 06:35 05/24/18 06:48 - Constitutional Appears: Well, Non-toxic, No Acute Distress - Head Exam Head Exam: ATRAUMATIC, NORMAL INSPECTION, NORMOCEPHALIC - Eye Exam Eye Exam: EOMI, Normal appearance - Neck Exam Neck Exam: Full ROM - Respiratory Exam Respiratory Exam: NORMAL BREATHING PATTERN. absent: Accessory Muscle Use, Respiratory Distress - GI/Abdominal Exam GI & Abdominal Exam: Soft - Exam Additional comments: Improving erythema R groin involving labia majora, inner gluteus, non tender to palpation, indurated, non fluctating, non odorous, Non purulent and non bloody. Improving erythema Pubic and suprapubic area. Healing excoriations on pubic area. 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 Collins. Osmin Hill, PGY-1
[2018-05-24 08:41] LABS: HEPATITIS B CORE AB NEGATIVE (NEGATIVE)
[2018-05-24] MEDS: Saccharomyces Boulardi 250 mg Cap PO SCH (10:00)
[2018-05-24] MEDS ORDERED: Potassium Chloride 20 mEq ER Tab PO ONE (10:00)
[2018-05-24] MEDS: Potassium & Sodium Phosphate PO SCH ×2 (10:00→14:34)
[2018-05-24 10:01] LABS: BASO % 1.3 % (0.0-2.0); EOS # 0.1 K/uL (0.0-0.7); EOS % 2.1 % (0.0-4.0); HEMOGLOBIN 12.3 g/dL (11.0-16.0); LYMPH # 0.8 K/uL (1.0-4.3); LYMPH % 23.6 % (20.0-40.0); MEAN CELL VOLUME 91.5 fL (81.0-99.0); MEAN CORPUSCULAR HEMOGLOBIN 31.9 pg (27.0-31.0); MEAN CORPUSCULAR HGB CONC 34.8 g/dL (33.0-37.0); MEAN PLATELET VOLUME 9.3 fL (7.2-11.7); MONO # 0.4 K/uL (0.0-0.8); MONO % 11.3 % (0.0-10.0); NEUT % 61.7 % (50.0-75.0); NRBC % 0.1 % (0.0-2.0); RBC 3.87 Mil/uL (3.80-5.20); RED CELL DISTRIBUTION WIDTH 13.5 % (11.5-14.5); WHITE BLOOD COUNT 3.3 K/uL (4.8-10.8)
[2018-05-24] MEDS: Fluconazole IV 200mg/100 ml NS 100 ML IVPB SCH (10:05)
[2018-05-24] MEDS: Hydrocortisone 1% Cream (30 GM) TOP SCH (10:10)
[2018-05-24] MEDS: Clotrimazole 1% Cream(30 gm) TOP SCH (10:10)
--- NOTE | 2018-05-24 11:10 | US ---
Date of service: 05/24/2018 HISTORY: thrombocytopenia COMPARISON: None. TECHNIQUE: Sonographic evaluation of the abdomen. FINDINGS: LIVER: Measures 13.4 cm. Diffusely increased echogenicity of the liver parenchyma. Consistent with fatty infiltration. No mass. No biliary ductal dilatation. Normal hepatopetal portal venous flow. GALLBLADDER: Unremarkable. No gallstones. COMMON BILE DUCT: Measures 2 mm. No stones. No dilatation. PANCREAS: Unremarkable as visualized. No mass. No ductal dilatation. RIGHT KIDNEY: Measures 12.0cm. Normal echogenicity. No calculus, mass, or hydronephrosis. LEFT KIDNEY: Measures 11.6cm. Normal echogenicity. No calculus, mass, or hydronephrosis. SPLEEN: Normal in size and contour. No mass. AORTA: No aneurysmal dilatation. IVC: Unremarkable. OTHER FINDINGS: None. IMPRESSION: Fatty infiltration of the liver. No evidence of cholelithiasis or cholecystitis. Otherwise unremarkable.
--- NOTE | 2018-05-24 15:58 | CP.PCM.DIS ---
<Rj Dalton - Last Filed: 05/24/18 20:14> Provider - Provider Date of Admission: 05/19/18 12:35 Attending physician: Yazmin Mccormack DO Primary care physician: Spenser Cardozo MD Consults: Infectious Disease: Dimple Boswell General Surgery: Bharat Tavarez Hematology Oncology: Lori Jeffers Gynecology: Dr. Zepeda [facility] Time Spent in preparation of Discharge (in minutes): 45 Diagnosis - Discharge Diagnosis (1) Cellulitis Status: Acute Priority: Medium Hospital Course - Lab Results Lab Results: Micro Results 05/19/18 13:41 Blood Blood Culture - Final NO GROWTH AFTER 5 DAYS 05/19/18 13:41 Blood Gram Stain - Final TEST NOT PERFORMED 05/19/18 13:41 Blood Blood Culture - Final NO GROWTH AFTER 5 DAYS 05/19/18 13:41 Blood Gram Stain - Final TEST NOT PERFORMED 05/23/18 20:31 Urine,Clean Catch Urine Culture - Preliminary No growth. 05/19/18 10:53 Urine,Clean Catch Urine Culture - Final Klebsiella Pneumoniae Ssp Pneu 05/19/18 11:08 Groin Gram Stain - Final 05/19/18 11:08 Groin Wound Culture - Final Coagulase Neg Staphylococcus Most Recent Lab Values WBC 3.3 K/uL (4.8-10.8) L 05/24/18 09:52 RBC 3.87 Mil/uL (3.80-5.20) 05/24/18 09:52 Hgb 12.3 g/dL (11.0-16.0) 05/24/18 09:52 Hct 35.4 % (34.0-47.0) 05/24/18 09:52 MCV 91.5 fL (81.0-99.0) 05/24/18 09:52 MCH 31.9 pg (27.0-31.0) H 05/24/18 09:52 MCHC 34.8 g/dL (33.0-37.0) 05/24/18 09:52 RDW 13.5 % (11.5-14.5) 05/24/18 09:52 Plt Count 101 K/uL (130-400) L 05/24/18 09:52 MPV 9.3 fL (7.2-11.7) 05/24/18 09:52 Neut % (Auto) 61.7 % (50.0-75.0) 05/24/18 09:52 Lymph % (Auto) 23.6 % (20.0-40.0) 05/24/18 09:52 [place] % (Auto) 11.3 % (0.0-10.0) H 05/24/18 09:52 Eos % (Auto) 2.1 % (0.0-4.0) 05/24/18 09:52 Baso % (Auto) 1.3 % (0.0-2.0) 05/24/18 09:52 Neut # (Auto) 2.0 K/uL (1.8-7.0) 05/24/18 09:52 Lymph # (Auto) 0.8 K/uL (1.0-4.3) L 05/24/18 09:52 [place] # (Auto) 0.4 K/uL (0.0-0.8) 05/24/18 09:52 Eos # (Auto) 0.1 K/uL (0.0-0.7) 05/24/18 09:52 Baso # (Auto) 0.0 K/uL (0.0-0.2) 05/24/18 09:52 Differential Comment 05/19/18 11:08 pO2 46 mm/Hg (30-55) 05/19/18 15:37 VBG pH 7.47 (7.32-7.43) H 05/19/18 15:37 VBG pCO2 37 mmHg (40-60) L 05/19/18 15:37 VBG HCO3 27.1 mmol/L 05/19/18 15:37 VBG Total CO2 28.0 mmol/L (22-28) 05/19/18 15:37 VBG O2 Sat (Calc) 88.8 % (40-65) H 05/19/18 15:37 VBG Base Excess 3.2 mmol/L (0.0-2.0) H 05/19/18 15:37 VBG Potassium 3.1 mmol/L (3.6-5.2) L 05/19/18 15:37 Sodium 139.0 mmol/l (132-148) 05/19/18 15:37 Chloride 105.0 mmol/L (98-107) 05/19/18 15:37 Glucose 142 mg/dl (65-105) H 05/19/18 15:37 Lactate 1.9 mmol/L (0.7-2.1) 05/19/18 15:37 Sodium 141 mmol/L (132-148) 05/24/18 06:48 Potassium 3.4 mmol/L (3.6-5.2) L 05/24/18 06:48 Chloride 107 mmol/L (98-107) 05/24/18 06:48 Carbon Dioxide 25 mmol/L (22-30) 05/24/18 06:48 Anion Gap 12 (10-20) 05/24/18 06:48 BUN 6 mg/dL (7-17) L 05/24/18 06:48 Creatinine 0.6 mg/dL (0.7-1.2) L 05/24/18 06:48 Est GFR ( Amer) > 60 05/24/18 06:48 Est GFR (Non-Af Amer) > 60 05/24/18 06:48 POC Glucose (mg/dL) 176 mg/dL (65-110) H 05/24/18 11:23 Random Glucose 149 mg/dL (65-105) H 05/24/18 06:48 Hemoglobin A1c 7.2 % (4.2-6.5) H 05/20/18 07:15 Lactic Acid 1.8 mmol/L (0.7-2.1) 05/19/18 15:30 Calcium 8.1 mg/dl (8.6-10.4) L 05/24/18 06:48 Phosphorus 2.9 mg/dL (2.5-4.5) 05/24/18 06:48 Magnesium 2.1 mg/dL (1.6-2.3) 05/24/18 06:48 Total Bilirubin 0.5 mg/dL (0.2-1.3) 05/24/18 06:48 AST 26 U/L (14-36) 05/24/18 06:48 ALT 31 U/L (9-52) 05/24/18 06:48 Alkaline Phosphatase 36 U/L (38-126) L 05/24/18 06:48 Total Protein 6.0 g/dL (6.3-8.3) L 05/24/18 06:48 Albumin 3.3 g/dL (3.5-5.0) L 05/24/18 06:48 Globulin 2.7 gm/dL (2.2-3.9) 05/24/18 06:48 Albumin/Globulin Ratio 1.2 (1.0-2.1) 05/24/18 06:48 Triglycerides 178 mg/dL (0-149) H 05/19/18 11:08 Cholesterol 128 mg/dL (0-199) 05/19/18 11:08 LDL Cholesterol Direct 66 mg/dL (0-129) 05/19/18 11:08 HDL Cholesterol 29 mg/dL (30-70) L 05/19/18 11:08 Venous Blood Potassium 3.1 mmol/L (3.6-5.2) L 05/19/18 15:37 Urine Color Yellow (YELLOW) 05/19/18 10:53 Urine Clarity Hazy (Clear) 05/19/18 10:53 Urine pH 5.0 (5.0-8.0) 05/19/18 10:53 Ur Specific [place] 1.018 (1.003-1.030) 05/19/18 10:53 Urine Protein 1+ mg/dL (NEGATIVE) H 05/19/18 10:53 Urine Glucose (UA) Normal mg/dL (Normal) 05/19/18 10:53 Urine Ketones Negative mg/dL (NEGATIVE) 05/19/18 10:53 Urine Blood 1+ (NEGATIVE) H 05/19/18 10:53 Urine Nitrate Negative (NEGATIVE) 05/19/18 10:53 Urine Bilirubin Negative (NEGATIVE) 05/19/18 10:53 Urine Urobilinogen Normal mg/dL (0.2-1.0) 05/19/18 10:53 Ur Leukocyte Esterase 3+ Hernan/uL (Negative) H 05/19/18 10:53 Urine WBC (Auto) 31 /hpf (0-5) H 05/19/18 10:53 Urine RBC (Auto) 5 /hpf (0-3) H 05/19/18 10:53 Ur Squamous Epith Cells 7 /hpf (0-5) H 05/19/18 10:53 Urine Bacteria Occ (<OCC) H 05/19/18 10:53 Vancomycin Trough 9.9 ug/mL (5.0-10.0) 05/21/18 02:53 C. difficile Ag & Toxin Negative (NEGATIVE) 05/23/18 20:31 Hepatitis A IgM Ab Negative (NEGATIVE) 05/24/18 06:48 Hep Bs Antigen Negative (NEGATIVE) 05/24/18 06:48 Hep B Core IgM Ab Negative (NEGATIVE) 05/24/18 06:48 Hepatitis C Antibody Negative (NEGATIVE) 05/24/18 06:48 HIV 1&2 Antibody Screen Negative (NEGATIVE) 05/21/18 02:53 - Hospital Course Hospital Course: Rj Dalton D.O. PGY1 - Discharge Summary Hospital Course for Dr. Easton Gonzales Primary care physician: Spenser Cardozo MD Consultants: Infectious Disease: Dimple Boswell General Surgery: Bharat Tavarez Hematology Oncology: Lori Jeffers Gynecology: Dr. Zepeda, [facility] COURSE SINCE ADMISSION 72 year old female with past medical history of diabetes mellitus, type 2, hypertension, lipid disorder, Rheumatoid Arthritis, who presented to the Emergency Department (ED) with a rash in her groin that she says first appeared on 05/16. Patient reports it has been getting worse and describes it as itchy, and burning that is worse with urination. Patient also reports blood in urine. Patient denied attempting to alleviate her symptoms with any creams or pills at home. Per patient, the itchiness was localized to the groin region, vagina, suprapubic area, and gluteal folds. While in the ED, vitals and CBC and CMP were obtained and showed the patient met SIRS criteria with [id number]=[id number], tachycardia, and leukopenia. Blood cultures, urine cultures, and wound cultures were obtained. Patient was treated with clotrimazole 1% cream 5gm topical and a single dose of Vanco 1gm IV and Zosyn were administered while in ED. Patient was subsequently admitted for evaluation and treatment of cellulitis. During stay, CT abd/pelvis PO and IV contrast was obtained and per radiology report, revealed: Limited cellulitis affecting suprapubic dermis and local subcutaneous fat as well as the dermis related to the gluteal fold with mild and superior segment and local subcutaneous fat as well. No abscess or emphysema soft tissue changes related. General surgery (Dr. Collins) consulted. Application of warm compress for 20 minutes 3 times daily was initiated, per General Surgery recommendation. Urinalysis was obtained and revealed protein 1+ , blood 1+, LE 3+, WBC 31 H, Bacteria +. Urine cultures obtained and revealed klebsiella pneumoniae. Infectious disease (Dr. Linn) was consulted. Patient was treated with Vancomycin 1g IVPB q12H, Diflucan 200mg IVPB Q24H, Ciprofloxacin 400mg IVPB Q12H, and Clotrimin cream top BID. The patient has a history of diabetes mellitus type 2. During the patient's hospital stay, home medication metformin was held due to recent IV contrast use. The patient was placed on insulin sliding scale. The patient's hypertension and lipid disorder was treated with home medications, with the addition of Lisinopril 5mg PO Daily for diabetic renal protection. Also during this admission, the patient was leukopenic, which was monitored with daily CBC. HIV 1/2 Abs were obtained and were negative. Likely secondary to steroid medication, as patient has history of Rheumatoid Arthritis. Thus, home steroid meds were held (Methylprednisolone 4mg QD, Leflunamide 20mg QD, Xeljanz 11mg QD). Of note: patient was instructed to discontinue rheumatoid arthritis medications until she is seen by her PMD. Daily CBC also revealed thrombocytopenia. Chemical anticoagulation was held. No note ecchymosis and/or petechiae on physical exam. Hematology-Oncology was consulted (Dr. Baker [facility]) who recommended out patient follow-up with PMD for repeat CBC to monitor platelets. Electrolytes were monitored during hospitalization and patient was found to be hypokalemic. Patient was treated with oral potassium; repleted as needed. On day of discharge, patient denied fever, chills, and/or dysuria. Patient stated her pruritus has subsided. The patient was hemodynamically stable, and the cellulitis improved and continued to recede from prior day's physical examination. Patient was medically cleared for discharge by Dr. Mccormack and by all consultants. Discharge Medications: Ciprofloxacin [Cipro] 500 mg PO BID #10 tab (Rx provided) Fluconazole [Diflucan] 100 mg PO DAILY #5 tab (Rx provided) Lisinopril [Prinivil] 5 mg PO DAILY #30 tablet (Rx provided) Saccharomyces Boulardi [Florastor] 250 mg PO BID 30 Days cap (Rx provided) Vitamin A & D [Vitamin A & D Oint UD Foilpak] 2 ea TOP Q8 PRN #1 fp PRN Reason: Dry buttocks area Please see discharge instructions for a complete summary. Patient is to follow up with her PMD (Dr. Anatoly LOMELI) to obtain repeat CBC to monitor thrombocytopenia. Patient is to take all medications as stated in the discharge instructions. Patient was advised to avoid irritating and/or scratching her groin area in order to prevent further excoriation and/or spread of cellulitis. Patient was given both oral and written instructions. All instructions were explained to the patient in detail. Patient both understand and agree to all instructions. Please see full chart for more detail. Patient seen and evaluated with, case discussed and plan approved by Attending Physician, Dr. Easton Dalton PGY-1 Discharge Exam - Head Exam Head Exam: ATRAUMATIC, NORMAL INSPECTION, NORMOCEPHALIC - Additional Findings Additional findings: - Constitutional Appears: Non-toxic, No Acute Distress - Head Exam Head Exam: ATRAUMATIC, NORMOCEPHALIC - Eye Exam Eye Exam: EOMI, Normal appearance - Neck Exam Neck Exam: absent: Lymphadenopathy - Respiratory Exam Respiratory Exam: Clear to Ausculation Bilateral, NORMAL BREATHING PATTERN. absent: Rales, Rhonchi - Cardiovascular Exam Cardiovascular Exam: REGULAR RHYTHM, +S1, +S2. absent: Murmur - GI/Abdominal Exam GI & Abdominal Exam: Soft, Normal Bowel Sounds. absent: Distended, Guarding, Tenderness - Exam External exam: Erythema, Lesions. absent: Swelling Additional comments: Labia majora with cellulitic changes with right labia majora more indurated than left with improvement since the day prior. Inner gluteal cleft with bilateral erythema and crusting, Improved from the day prior. Sacral cleft and left buttock: hyperpigmented scaley macular plaques that continue down towards the medial thigh. Erythematous patches found in pubic and suprapubic area, non-tender to palpation , indurated, nonfluctation. - Extremities Exam Additional comments: peripheral pulses palpable bilaterally (radial, PT) - Back Exam Back Exam: absent: CVA tenderness (L), CVA tenderness (R) - Neurological Exam Neurological Exam: Alert, Awake, Oriented x3 - Psychiatric Exam Psychiatric exam: Normal Affect, Normal Mood Discharge Plan - Discharge Medications Prescriptions: Ciprofloxacin [Cipro] 500 mg PO BID #10 tab Fluconazole [Diflucan] 100 mg PO DAILY #5 tab RX: Lisinopril [Prinivil] 5 mg PO DAILY #30 tablet RX: Saccharomyces Boulardi [Florastor] 250 mg PO BID 30 Days cap RX: Vitamin A & D [Vitamin A & D Oint UD Foilpak] 2 ea TOP Q8 PRN #1 fp PRN Reason: Dry buttocks area - Follow Up Plan Condition: STABLE Disposition: HOME/ ROUTINE Patient education suggested?: Yes Instructions: Ciprofloxacin (Systemic), Saccharomyces boulardii, Fluconazole, Lisinopril, Cellulitis (DC) Additional Instructions: Patient is medically stable for discharge home, per Dr. Mccormack Patient is to follow-up with PMD, Dr. Ledbetter within 1 week of discharge At follow-up visit with PMD: - patient will need repeat CBC with diff in order to check platelets. - patient will need to follow up with aeronautical test engineer and a referral to gynecology if rash persists after treatment to further evaluate vulvar lesion. Patient is to stop taking rheumatoid arthritis medications until she sees her PMD and gets evaluated by PMD Patient is to take the following new medications: - Diflucan 100mg by mouth daily for 5 days starting 05/25/18 - Ciprofloxacin 500mg by mouth twice daily for 5 days starting 05/25/18 - Florestor 250mg by mouth daily for 1 month starting 05/25/18 - Lisinopril 5mg by mouth daily Patient is to return to the ED if symptoms were to reoccur and/or worsen Referrals: Spenser Ledbetter MD [Medical Doctor] - Sarah Zepeda MD [Staff Provider] - Lori Baker MD [Staff Provider] - <Yazmin Mccormack V - Last Filed: 05/26/18 23:34> Provider - Provider Date of Admission: 05/19/18 12:35 Attending physician: Yazmin Mccormack DO Hospital Course - Lab Results Lab Results: Micro Results 05/23/18 20:31 Urine,Clean Catch Urine Culture - Final No Growth (<1,000 CFU/ML) 05/19/18 13:41 Blood Blood Culture - Final NO GROWTH AFTER 5 DAYS 05/19/18 13:41 Blood Gram Stain - Final TEST NOT PERFORMED 05/19/18 13:41 Blood Blood Culture - Final NO GROWTH AFTER 5 DAYS 05/19/18 13:41 Blood Gram Stain - Final TEST NOT PERFORMED 05/19/18 10:53 Urine,Clean Catch Urine Culture - Final Klebsiella Pneumoniae Ssp Pneu 05/19/18 11:08 Groin Gram Stain - Final 05/19/18 11:08 Groin Wound Culture - Final Coagulase Neg Staphylococcus Most Recent Lab Values WBC 3.3 K/uL (4.8-10.8) L 05/24/18 09:52 RBC 3.87 Mil/uL (3.80-5.20) 05/24/18 09:52 Hgb 12.3 g/dL (11.0-16.0) 05/24/18 09:52 Hct 35.4 % (34.0-47.0) 05/24/18 09:52 MCV 91.5 fL (81.0-99.0) 05/24/18 09:52 MCH 31.9 pg (27.0-31.0) H 05/24/18 09:52 MCHC 34.8 g/dL (33.0-37.0) 05/24/18 09:52 RDW 13.5 % (11.5-14.5) 05/24/18 09:52 Plt Count 101 K/uL (130-400) L 05/24/18 09:52 MPV 9.3 fL (7.2-11.7) 05/24/18 09:52 Neut % (Auto) 61.7 % (50.0-75.0) 05/24/18 09:52 Lymph % (Auto) 23.6 % (20.0-40.0) 05/24/18 09:52 [place] % (Auto) 11.3 % (0.0-10.0) H 05/24/18 09:52 Eos % (Auto) 2.1 % (0.0-4.0) 05/24/18 09:52 Baso % (Auto) 1.3 % (0.0-2.0) 05/24/18 09:52 Neut # (Auto) 2.0 K/uL (1.8-7.0) 05/24/18 09:52 Lymph # (Auto) 0.8 K/uL (1.0-4.3) L 05/24/18 09:52 [place] # (Auto) 0.4 K/uL (0.0-0.8) 05/24/18 09:52 Eos # (Auto) 0.1 K/uL (0.0-0.7) 05/24/18 09:52 Baso # (Auto) 0.0 K/uL (0.0-0.2) 05/24/18 09:52 Differential Comment 05/19/18 11:08 pO2 46 mm/Hg (30-55) 05/19/18 15:37 VBG pH 7.47 (7.32-7.43) H 05/19/18 15:37 VBG pCO2 37 mmHg (40-60) L 05/19/18 15:37 VBG HCO3 27.1 mmol/L 05/19/18 15:37 VBG Total CO2 28.0 mmol/L (22-28) 05/19/18 15:37 VBG O2 Sat (Calc) 88.8 % (40-65) H 05/19/18 15:37 VBG Base Excess 3.2 mmol/L (0.0-2.0) H 05/19/18 15:37 VBG Potassium 3.1 mmol/L (3.6-5.2) L 05/19/18 15:37 Sodium 139.0 mmol/l (132-148) 05/19/18 15:37 Chloride 105.0 mmol/L (98-107) 05/19/18 15:37 Glucose 142 mg/dl (65-105) H 05/19/18 15:37 Lactate 1.9 mmol/L (0.7-2.1) 05/19/18 15:37 Sodium 141 mmol/L (132-148) 05/24/18 06:48 Potassium 3.4 mmol/L (3.6-5.2) L 05/24/18 06:48 Chloride 107 mmol/L (98-107) 05/24/18 06:48 Carbon Dioxide 25 mmol/L (22-30) 05/24/18 06:48 Anion Gap 12 (10-20) 05/24/18 06:48 BUN 6 mg/dL (7-17) L 05/24/18 06:48 Creatinine 0.6 mg/dL (0.7-1.2) L 05/24/18 06:48 Est GFR ( Amer) > 60 05/24/18 06:48 Est GFR (Non-Af Amer) > 60 05/24/18 06:48 POC Glucose (mg/dL) 172 mg/dL (65-110) H 05/24/18 16:42 Random Glucose 149 mg/dL (65-105) H 05/24/18 06:48 Hemoglobin A1c 7.2 % (4.2-6.5) H 05/20/18 07:15 Lactic Acid 1.8 mmol/L (0.7-2.1) 05/19/18 15:30 Calcium 8.1 mg/dl (8.6-10.4) L 05/24/18 06:48 Phosphorus 2.9 mg/dL (2.5-4.5) 05/24/18 06:48 Magnesium 2.1 mg/dL (1.6-2.3) 05/24/18 06:48 Total Bilirubin 0.5 mg/dL (0.2-1.3) 05/24/18 06:48 AST 26 U/L (14-36) 05/24/18 06:48 ALT 31 U/L (9-52) 05/24/18 06:48 Alkaline Phosphatase 36 U/L (38-126) L 05/24/18 06:48 Total Protein 6.0 g/dL (6.3-8.3) L 05/24/18 06:48 Albumin 3.3 g/dL (3.5-5.0) L 05/24/18 06:48 Globulin 2.7 gm/dL (2.2-3.9) 05/24/18 06:48 Albumin/Globulin Ratio 1.2 (1.0-2.1) 05/24/18 06:48 Triglycerides 178 mg/dL (0-149) H 05/19/18 11:08 Cholesterol 128 mg/dL (0-199) 05/19/18 11:08 LDL Cholesterol Direct 66 mg/dL (0-129) 05/19/18 11:08 HDL Cholesterol 29 mg/dL (30-70) L 05/19/18 11:08 Venous Blood Potassium 3.1 mmol/L (3.6-5.2) L 05/19/18 15:37 Urine Color Yellow (YELLOW) 05/19/18 10:53 Urine Clarity Hazy (Clear) 05/19/18 10:53 Urine pH 5.0 (5.0-8.0) 05/19/18 10:53 Ur Specific [place] 1.018 (1.003-1.030) 05/19/18 10:53 Urine Protein 1+ mg/dL (NEGATIVE) H 05/19/18 10:53 Urine Glucose (UA) Normal mg/dL (Normal) 05/19/18 10:53 Urine Ketones Negative mg/dL (NEGATIVE) 05/19/18 10:53 Urine Blood 1+ (NEGATIVE) H 05/19/18 10:53 Urine Nitrate Negative (NEGATIVE) 05/19/18 10:53 Urine Bilirubin Negative (NEGATIVE) 05/19/18 10:53 Urine Urobilinogen Normal mg/dL (0.2-1.0) 05/19/18 10:53 Ur Leukocyte Esterase 3+ Hernan/uL (Negative) H 05/19/18 10:53 Urine WBC (Auto) 31 /hpf (0-5) H 05/19/18 10:53 Urine RBC (Auto) 5 /hpf (0-3) H 05/19/18 10:53 Ur Squamous Epith Cells 7 /hpf (0-5) H 05/19/18 10:53 Urine Bacteria Occ (<OCC) H 05/19/18 10:53 Vancomycin Trough 9.9 ug/mL (5.0-10.0) 05/21/18 02:53 C. difficile Ag & Toxin Negative (NEGATIVE) 05/23/18 20:31 Hepatitis A IgM Ab Negative (NEGATIVE) 05/24/18 06:48 Hep Bs Antigen Negative (NEGATIVE) 05/24/18 06:48 Hep B Core IgM Ab Negative (NEGATIVE) 05/24/18 06:48 Hepatitis C Antibody Negative (NEGATIVE) 05/24/18 06:48 HIV 1&2 Antibody Screen Negative (NEGATIVE) 05/21/18 02:53 Attending/Attestation - Attestation I have personally seen and examined this patient.: Yes I have fully participated in the care of the patient.: Yes I have reviewed all pertinent clinical information, including history, physical exam and plan: Yes Notes (Text): This is late computer entry for 05/24/18. patient seen, examined and case discussed with day-time resident. Patient seen at bedside. patient's main complaint is itchiness over the groin has improved significantly. Rash continues to improve. Discussed with ID, patient discharge on PO antibiotic and PO antifungal. Discuss with heme-onc, possible thrombocytopenia related to rheumatoid arthritis. Patient will need to f/u outpatient with urologist for workup for urinary incontinence. Instructions upon discharge: * Patient is to follow-up with PMD, Dr. Ledbetter within 1 week of discharge * At follow-up visit with PMD: * patient will need repeat CBC with diff in order to check platelets. * patient will need to follow up with aeronautical test engineer and a referral to gynecology if rash persists after treatment to further evaluate vulvar lesion. * Patient is to stop taking rheumatoid arthritis medications until she sees her PMD and gets evaluated by PMD * Patient is to take the following new medications: * Diflucan 100mg by mouth daily for 5 days starting 05/25/18 * Ciprofloxacin 500mg by mouth twice daily for 5 days starting 05/25/18 * Florestor 250mg by mouth daily for 1 month starting 05/25/18 * Lisinopril 5mg by mouth daily Patient is to return to the ED if symptoms were to reoccur and/or worsen. This is a summary of patient's hospitalization. Please see EMR for further detail of record. Discharge Diagnoses: 1) Right Groin Cellulitis, fungal rash Assessment/Plan * SIRS Criteria met on admission: fever [id number], Tachycardia, leukopenia * Risk Factors: diabetes; immunocompromised secondary to steroids for RA * Infectious Disease (Dr. Linn) consulted, recommendations appreciated * General surgery (Dr. Collins) consulted, recommendations appreciated: Warm compress application for 20 minutes TID * Gynecology consulted: Dr. Zepeda, recommendations appreciated * Evaluated by Dr. Carpenter (05/21) - not [employer] issue, will sign off * F/u outpatient chinese teacher if labia lesion persist for outpatient biopsy * Patient afebrile at time of evaluation * Lactic acid=1.8 on admission * Blood cultures prelim: no growth for 4 days X2 * Wound culture (05/19/18): coagulase neg staphylococcus * Urine culture (05/19/18): klebsiella pneumoniae * urine culture: no growth * Benadryl 25mg IV Q8H PRN itchiness * CT abd/pelvis PO and IV contrast impression per radiology report: Limited cellulitis affects suprapubic dermis and local subcutaneous fat as well as the dermis related to the gluteal fold with mild and superior segment and local subcutaneous fat as well. No abscess or emphysema soft tissue changes related. * upon discharge: * Diflucan 100mg by mouth daily for 5 days starting 05/25/18 * Ciprofloxacin 500mg by mouth twice daily for 5 days starting 05/25/18 * Florestor 250mg by mouth daily for 1 month starting 05/25/18 * Lisinopril 5mg by mouth daily 2) Hypokalemia Assessment/Plan * normalized 3) Urinary Tract Infection Assessment/Plan * Urine culture: klebsiella pneumoniae * Repeat Urine culture: no growth * ID consulted about the case, recommendations appreciated. 4) Abnormal EKG on admission, resolved 5) Diabetes Mellitus, type 2 Assessment/Plan * Hemoglobin A1C = 7.2 * Continue Novolog ISS sc (low) * Continue to hold Metformin * Hypoglycemic protocol 6) History of Lipid Disorder Assessment/Plan * Lipid Panel Results: Hkgndcssvqdnb=171, HDL=29, LDL=66, Total Hnqajkxhmbc=666 * Continue equivalent of home-med (Atorvastatin 10mg POqHS) Crestor while in hospital 7) History of Hypertension, stable Assessment/Plan * Coreg 25mg PO daily * Aspirin 81mg PO daily * Lisinopril 5mg PO daily 8) History of Rheumatoid Arthritis - Hold home meds during admission (Methylprednisolone 4mg QD, Leflunamide 20mg QD, Xeljanz 11mg QD)--->to f/u with PMD upon discharge 9) Leukopenia Assessment/Plan * WBC=3.4 ANC: >1.6 * HIV 1/2 Abs negative * Discontinue home steroids for RA on admission * Continue to monitor 10) Thrombocytopenia, Mild Assessment/Plan * Platelets=98 (99 on 05/22) * Hold chemical anticoagulation given thrombocytopenia * No noted ecchymoses and/or petechiae on physical exam * HIV negative * hepatitis panel ordered * Abdominal US to order * To f/u with heme-onc and PMD upon discharge 11) History of Osteoporosis Assessment/Plan * Hold home med during admission (Risendronate 150mg Monthly) 12) PPx: * SCDs * ASA 81mg PO daily * Chemical anticoagulation hold given mild thrombocytopenia * Full code
--- NOTE | 2018-05-24 16:13 | CP.PCM.CON ---
History of Present Illness - History of Present Illness History of Present Illness: 72 yo woman admitted with, rash, itchiness, redness in the groin area, started on antibiotics, feeling much better. Have discussed with patient and family regarding pancytopenia, the rest of the work up can be done as an outpatient Past Patient History - Past Medical History & Family History Past Medical History?: Yes - Past Social History Smoking Status: Never Smoked Chewing Tobacco Use: No Cigar Use: No Alcohol: None Drugs: Denies - CARDIAC Hx Hypercholesterolemia: Yes Hx Hypertension: Yes - ENDOCRINE/METABOLIC Hx Diabetes Mellitus Type 2: Yes - MUSCULOSKELETAL/RHEUMATOLOGICAL Hx Arthritis: Yes - PSYCHIATRIC Hx Substance Use: No - SURGICAL HISTORY Hx Surgeries: Yes - ANESTHESIA Hx Anesthesia: Yes Hx Anesthesia Reactions: No Hx Malignant Hyperthermia: No Meds Home Medications: Home Medication List Medication Instructions Recorded Confirmed Type Acetaminophen [Tylenol 325mg tab] 650 mg PO Q6 PRN tab 05/24/18 Rx Aspirin [Aspirin Chewable] 81 mg PO DAILY chew 05/24/18 Rx Ciprofloxacin [Cipro] 500 mg PO BID #10 tab 05/24/18 Rx Fluconazole [Diflucan] 100 mg PO DAILY #5 tab 05/24/18 Rx Lisinopril [Prinivil] 5 mg PO DAILY #30 tablet 05/24/18 Rx Saccharomyces Boulardi [Florastor] 250 mg PO BID 30 Days cap 05/24/18 Rx Vitamin A & D [Vitamin A & D Oint 2 ea TOP Q8 PRN #1 fp 05/24/18 Rx UD Foilpak] Allergies/Adverse Reactions: Allergies Allergy/AdvReac Type Severity Reaction Status Date / Time No Known Allergies Allergy Verified 05/19/18 10:28 - Medications Medications: Current Medications Acetaminophen (Tylenol 325mg Tab) 650 mg PO Q6 PRN PRN Reason: Fever >100.4 F Last Admin: 05/22/18 00:30 Dose: 650 mg Aspirin (Aspirin Chewable) 81 mg PO DAILY [facility] Last Admin: 05/24/18 10:00 Dose: 81 mg Carvedilol (Coreg) 25 mg PO DAILY [facility] Last Admin: 05/24/18 12:44 Dose: 25 mg Clotrimazole (Lotrimin 1%) 1 gm TOP BID [facility] Last Admin: 05/24/18 10:10 Dose: 1 gm Dextrose (Dextrose 50% Inj) 50 ml IVP ONCE PRN PRN Reason: Hypoglycemia Dextrose (Dextrose 50% Inj) 0 ml IV STAT PRN; Protocol PRN Reason: Hypoglycemia Protocol Dextrose (Glutose 15) 0 gm PO ONCE PRN; Protocol PRN Reason: Hypoglycemia Protocol Diphenhydramine HCl (Benadryl) 25 mg IVP Q8H PRN PRN Reason: Itching / Pruritus Glucagon (Glucagen Diagnostic Kit) 0 mg IM STAT PRN; Protocol PRN Reason: Hypoglycemia Protocol Hydrocortisone (Cortizone 1% Cream) 1 gm TOP BID [facility] Last Admin: 05/24/18 10:10 Dose: 1 gm Fluconazole (Diflucan Iv 200 Mg/100 Ml Ns) 100 mls @ 100 mls/hr IVPB DAILY [facility] PRN Reason: Protocol Last Admin: 05/24/18 10:05 Dose: 100 mls/hr Ciprofloxacin (Cipro 400mg/200ml Dsw) 400 mg in 200 mls @ 133 mls/hr IVPB Q12H [facility] PRN Reason: Protocol Last Admin: 05/24/18 14:34 Dose: 133 mls/hr Vancomycin/Sodium Chloride (Vancomycin 1 Gm/Ns 200 Ml) 1 gm in 200 mls @ 166.6 mls/hr IVPB Q12H [facility] PRN Reason: Protocol Stop: 05/27/18 17:01 Last Admin: 05/24/18 04:04 Dose: 166.6 mls/hr Insulin Aspart (Novolog) 0 unit SC ACHS [facility] PRN Reason: Protocol Last Admin: 05/24/18 12:30 Dose: Not Given Lisinopril (Zestril) 5 mg PO DAILY [facility] Last Admin: 05/24/18 10:00 Dose: 5 mg Rosuvastatin Calcium (Crestor) 5 mg PO DIN [facility] Last Admin: 05/19/18 18:14 Dose: 5 mg Saccharomyces Boulardii (Florastor) 250 mg PO BID [facility] Last Admin: 05/24/18 10:00 Dose: 250 mg Vitamin A (Vitamin A & D Oint Ud Foilpak) 2 ea TOP Q8 PRN PRN Reason: Dry buttocks area Results - Vital Signs Recent Vital Signs: Last Vital Signs Temp 98.4 F 05/24/18 08:07 Pulse 83 05/24/18 08:07 Resp 20 05/24/18 08:07 BP 112/71 05/24/18 12:44 Pulse Ox 96 05/24/18 08:07 - Labs Result Diagrams: 05/24/18 09:52 05/24/18 06:48 Labs: Laboratory Results - last 24 hr 05/23/18 05/23/18 05/23/18 16:39 20:31 21:20 WBC RBC Hgb Hct MCV MCH MCHC RDW Plt Count MPV Neut % (Auto) Lymph % (Auto) Hughes % (Auto) Eos % (Auto) Baso % (Auto) Neut # (Auto) Lymph # (Auto) Hughes # (Auto) Eos # (Auto) Baso # (Auto) Sodium Potassium Chloride Carbon Dioxide Anion Gap BUN Creatinine Est GFR ( Amer) Est GFR (Non-Af Amer) POC Glucose (mg/dL) 149 H 159 H Random Glucose Calcium Phosphorus Magnesium Total Bilirubin AST ALT Alkaline Phosphatase Total Protein Albumin Globulin Albumin/Globulin Ratio C. difficile Ag & Toxin Negative Hepatitis A IgM Ab Hep Bs Antigen Hep B Core IgM Ab Hepatitis C Antibody 05/24/18 05/24/18 05/24/18 06:48 06:48 07:38 WBC RBC Hgb Hct MCV MCH MCHC RDW Plt Count MPV Neut % (Auto) Lymph % (Auto) Hughes % (Auto) Eos % (Auto) Baso % (Auto) Neut # (Auto) Lymph # (Auto) Hughes # (Auto) Eos # (Auto) Baso # (Auto) Sodium 141 Potassium 3.4 L Chloride 107 Carbon Dioxide 25 Anion Gap 12 BUN 6 L Creatinine 0.6 L Est GFR ( Amer) > 60 Est GFR (Non-Af Amer) > 60 POC Glucose (mg/dL) 160 H Random Glucose 149 H Calcium 8.1 L Phosphorus 2.9 Magnesium 2.1 Total Bilirubin 0.5 AST 26 ALT 31 Alkaline Phosphatase 36 L Total Protein 6.0 L Albumin 3.3 L Globulin 2.7 Albumin/Globulin Ratio 1.2 C. difficile Ag & Toxin Hepatitis A IgM Ab Negative Hep Bs Antigen Negative Hep B Core IgM Ab Negative Hepatitis C Antibody Negative 05/24/18 05/24/18 09:52 11:23 WBC 3.3 L RBC 3.87 Hgb 12.3 Hct 35.4 MCV 91.5 MCH 31.9 H MCHC 34.8 RDW 13.5 Plt Count 101 L MPV 9.3 Neut % (Auto) 61.7 Lymph % (Auto) 23.6 Hughes % (Auto) 11.3 H Eos % (Auto) 2.1 Baso % (Auto) 1.3 Neut # (Auto) 2.0 Lymph # (Auto) 0.8 L Hughes # (Auto) 0.4 Eos # (Auto) 0.1 Baso # (Auto) 0.0 Sodium Potassium Chloride Carbon Dioxide Anion Gap BUN Creatinine Est GFR ( Amer) Est GFR (Non-Af Amer) POC Glucose (mg/dL) 176 H Random Glucose Calcium Phosphorus Magnesium Total Bilirubin AST ALT Alkaline Phosphatase Total Protein Albumin Globulin Albumin/Globulin Ratio C. difficile Ag & Toxin Hepatitis A IgM Ab Hep Bs Antigen Hep B Core IgM Ab Hepatitis C Antibody Assessment & Plan - Assessment and Plan (Free Text) Assessment: 72 yo woman with mild pancytopenia, admitted with cellulitis with superimposed fungal infection of the groin area, currently better. Asymptomatic pancytopenia, without splenomegaly, likely secondary to immunosuppressive meds, ? infection. She will need follow up labs in aweek or so and if cytopenias still persist, can have the rest of the work up done as outpatient
[2018-05-24 16:36] VITALS: BP 95/63; PULSE 67; RESP 18; TEMP 98.3
== END 2018-05-24 17:25 | disposition home or self-care (01) | DRG 603 ==
LOC: C.ER 10:12 → C.9E 12:35 → C.3T 18:40
PROVIDERS: ADMIT Hospitalist; ATTEND Hospitalist
DX: L03.314 Cellulitis of groin (principal); N39.0 Urinary tract infection, site not specified; D61.818 Other pancytopenia; L03.119 Cellulitis of unspecified part of limb; R32 Unspecified urinary incontinence; B35.6 Tinea cruris; E11.9 Type 2 diabetes mellitus without complications; E78.5 Hyperlipidemia, unspecified; E87.6 Hypokalemia; I10 Essential (primary) hypertension; M06.9 Rheumatoid arthritis, unspecified; M81.0 Age-related osteoporosis without current pathological fracture; Z79.82 Long term (current) use of aspirin